=== PATIENT | female | born 1995 | race Caucasian/White ===

== ENCOUNTER 2018-02-24 11:18 | Outpatient (CLI) | payer OTHER ==
[2018-02-24 12:01] VITALS: BP 116/69
[2018-02-24 12:47] LABS: BILIRUBIN,URINE NEGATIVE (NEGATIVE); GLUCOSE, URINE (UA) NEGATIVE (NEGATIVE); KETONES,URINE (UA) 15 mg/dL (NEGATIVE); LEUKOCYTE ESTERASE, URINE TRACE (NEGATIVE); NITRITE,URINE NEGATIVE (NEGATIVE); OCCULT BLOOD,URINE LARGE (NEGATIVE); PROTEIN,URINE 100 mg/dL (NEGATIVE); UROBILINOGEN,URINE 0.2 (NORMAL) E.U./dL (NORMAL)
[2018-02-24 12:48] LABS: CLARITY,URINE HAZY (CLEAR)
[2018-02-24 13:07] LABS: BACTERIA,URINE Few /HPF (None Seen); RBC,URINE TNTC /HPF (0-5); SQUAMOUS EPITHELIAL CELL,UR RARE Squamous (<= Few)
== END 2018-02-24 12:50 | disposition home or self-care (01) ==
LOC: WFO 11:18 → FBP 11:44 → WFO 12:50
PROVIDERS: ATTEND Nurse Practitioner Obstetrics & Gynecology
DX: O47.03 False labor before 37 completed weeks of gestation, third trimester (principal); Z3A.34 34 weeks gestation of pregnancy
CPT/HCPCS: 81001; 81003; 87086; 99213

== ENCOUNTER 2018-03-01 14:46 | Outpatient (CLI) | payer OTHER | END 2018-03-01 14:47 | disposition home or self-care (01) | LOC: LAB.R 14:46 | PROVIDERS: ATTEND Registered Nurse | DX: Z36.85 Encounter for antenatal screening for Streptococcus B (principal) | CPT/HCPCS: 87081 ==

== ENCOUNTER 2018-03-07 15:23 | Outpatient (CLI) | payer OTHER ==
[2018-03-07 19:39] LABS: BILIRUBIN,URINE NEGATIVE (NEGATIVE); GLUCOSE, URINE (UA) NEGATIVE (NEGATIVE); KETONES,URINE (UA) NEGATIVE (NEGATIVE); LEUKOCYTE ESTERASE, URINE MODERATE (NEGATIVE); NITRITE,URINE NEGATIVE (NEGATIVE); OCCULT BLOOD,URINE TRACE-LYSE (NEGATIVE); PROTEIN,URINE NEGATIVE (NEGATIVE); UROBILINOGEN,URINE 0.2 (NORMAL) E.U./dL (NORMAL)
[2018-03-07 19:52] LABS: BACTERIA,URINE Few /HPF (None Seen); CLARITY,URINE CLEAR (CLEAR); RBC,URINE 0-5 /HPF (0-5); SQUAMOUS EPITHELIAL CELL,UR MANY Squamous (<= Few)
== END 2018-03-07 15:24 | disposition home or self-care (01) ==
LOC: LAB.R 15:23
PROVIDERS: ATTEND Nurse Practitioner Obstetrics & Gynecology
DX: R35.0 Frequency of micturition (principal)
CPT/HCPCS: 81001; 87086

== ENCOUNTER 2018-03-29 03:20 | Inpatient (IN) | payer OTHER ==
[2018-03-29] MEDS ORDERED: SODIUM CHLORIDE FLUSH 0.9% 10 ML SYRINGE IVP PRN (04:00)
[2018-03-29] MEDS ORDERED: fentaNYL 100 MCG/2 ML VIAL IVP PRN (04:00)
[2018-03-29] MEDS ORDERED: ONDANSETRON 4 MG/2 ML VIAL IVP PRN (04:00)
[2018-03-29] MEDS ORDERED: OXYTOCIN/SODIUM CHLORIDE 250 ML IV ONE ×2 (04:00→21:03)
[2018-03-29] MEDS ORDERED: ACETAMINOPHEN 325 MG TABLET PO SCH (04:00)
--- NOTE | 2018-03-29 04:09 | HISTORY & PHYSICAL EXAMINATION ---
Admit History - Instructions [place]: -Left hand click circles element as positive or present. -Right hand click slashes element as negative or not present. - Visit Reason Visit Reason: Membranes rupture (gross, copious leakage of CAF beginning @ 0230) - : 1 Parity: 0 Premature: 0 Ectopic: 0 : 0 Care: positive: [facility] (until 33 weeks), [facility] (transfer of care @ 33 weeks' gestation) Risk/History: positive: None Complications This : positive: Other (Rh negative, rubella NI ) Smoking Status: Never smoker - Mother's Labs Mother's Blood Type: positive: O Mother's RH: positive: Negative GBS: positive: Group B Step Negative Rubella Status: positive: Non-immune (vaccinate ) - Other Maternal History Other Maternal History: PMH: Unremarkable PsurgHx: Surgery on L 5th digit @ age 11 secondary to fracture; no complications GynHx: Denies hx of STI; LMP 06/19/17; no pap hx secondary to age OBhx: Primiparous FamHx: Maternal hx of obesity, diabetes, otherwise non-contributory SocHx: Lives w/ her mother & sister, denies DV, negligence, other abuse; partnered to Cyril KIDD, who is presently deployed, works p/t @ [employer] in [place], denies ETOH/drugs/tobacco, expecting male "OLIVA" Meds/Allgy - Home Medications Home Medications: Ambulatory Orders Medication Instructions Recorded Confirmed Phenazopyridine [Pyridium] 100 mg PO Q8H PRN #9 tablet 10/28/15 - Allergies Allergies/Adverse Reactions: Allergies Allergy/AdvReac Type Severity Reaction Status Date / Time latex Allergy Rash Verified 10/28/15 19:35 Review of Systems - Constitutional Constitutional: denies: Fatigue, Fever, Chills, Malaise - Cardiovascular Cariovascular: denies: Irregular heart rate, Palpitations, Chest pain, Edema - Respiratory Respiratory: denies: Cough, Sputum production, Wheezing - Gastrointestinal Gastrointestinal: reports: Reflux/heartburn. denies: Abdominal pain, Abdominal distention, Constipation, Diarrhea, Change in bowel habits, Nausea, Vomiting - Genitourinary Genitourinary: reports: Frequency. denies: Dysuria, Urgency - Musculoskeletal Musculoskeletal: reports: Back pain. denies: Muscle pain - Integumentary Integumentary: denies: Rash, Pruritis, Lesions - Neurological Neurological: denies: General weakness, Focal weakness, Headache, Dizziness, Numbness, Pre-existing deficit - Psychiatric Psychiatric: denies: Depression, Anxiety - Endocrine Endocrine: denies: Polyuria - Hematologic/Lymphatic Hematologic/Lymphatic: denies: Anemia - All Other Systems All Other Systems: reports: Other (+FM, +LOF, no VB, bloody show last week, occ painful contractions, nothing consistent) Physical - Abdominal Exam Vital Signs: Temp Pulse Resp BP Pulse Ox 36.6 C 79 20 137/86 H 99 03/29/18 03:29 03/29/18 03:29 03/29/18 03:29 03/29/18 03:29 03/29/18 03:29 Contraction Frequency (min/apart): 2-4 : 60-80 Contraction Intensity: positive: Mild Uterine Resting Tone: positive: Soft - Monitoring Heart Rate Baseline: 130 Strip Review: positive: Category I (+accels, no decels, mod diamante) - Presentation Presentation: positive: Vertex - Vaginal Exam Membranes: positive: Membranes ruptured Dilation (in cm): 2 Effacement (%): 90 Station: positive: 0 Cervical Position: positive: Midposition (Fierro's score = 8) - Speculum Exam Speculum Exam Performed: positive: No Findings: positive: Gross leak (observed copious leakage of CAF), Nitrazine - Other Notes Labor Progress Note/Additional Text: China Roberts is a 22 y/o @ 39w1d by first trimester US, consistent w/ LMP dating, whose has been largely uncomplicated to date. Her screening labs have been notable only for negative blood type (w/ negative antibody screening & routine administration of Rhogam 300mcg IM @ 27 weeks' gestation), and rubella NI status. She screened negative for GBS @ 36 weeks' gestation. She presents this evening w/ a complaint of LOF since 0230. She reports occasional painful contractions but is largely unaware of most of the contraction activity that she is having. She is accompanied by her mother & her sister & is FaceTiming w/ Cyril, who is presently deployed. She reports good FM. She is hoping for minimal intervention & is hoping to have an unmedicated delivery. PE: GEN: AAOX3, NAD WA gravid female HEENT: Grossly normocephalic, atraumatic RESP: Lungs b/l CTA t/o CARDIAC: RRR nls1s2, no murmur GI: Abd gravid, NT, palpable mild uterine contractions, lie longitudinal, presentation cephalic, position DOP, EFW 7.5-8# : No lesions, gross leakage of copious CAF, no bleeding OB: EFM: BL 130bpm, +accels, no decels, mod diamante; TOCO: UCs q2-4 min x60-80 seconds, palpably mild; SVE 2/90/0, midposition, soft, Fierro's Score = 8 MS: FROM t/o, no edema/erythema/deformity NEURO: No focal deficit SKIN: warm, well-perfused, c/d/i, w/o lesion PSYCH: pleasantly conversant w/ normal mood & affect Plan for Labor - Plan For Labor I expect patient to be DC'd or transferred within 96 hours.: Yes Plan for Labor: A: 22 y/o @ 39w1d w/ SROM for CAF @ 0230, for a total ruptured duration of 1.75 hours, afebrile GBS negative FHTs cat I Adequate pain control w/o analgesia/anesthesia O negative Rubella NI Early latent labor malposition: occiput posterior P: 1. Admit to FBP, IV insert, admission labs 2. Reviewed physiology of labor & implications of SROM; reviewed recommendation for IOL if she is not in labor & rationale; she is presently kim too frequently to receive augmentation, but PARQ held for buccal misoprostol & reviewed @ great length the risks/benefits of augmentation @ this time; if contractions are no longer consistently occurring at minimum q 4 minutes, administer 50mcg buccal misoprostol q 4 hours; reviewed use of Pitocin; once Fierro's >9 in this primiparous woman, if contractions are no longer consistently occuring at minimum q 4 minutes, begin Pitocin infusion per protocol & titrate to maintain adequate contraction pattern by tocometry 3. Reviewed optimal fetl positioning & maternal positioning/activity to encourage rotation & descent 4. Reviewed pain management options; pt desires unmedicated delivery, reviewed relief measures @ length 5. Reassess cervical status x4 hours, earlier PRN; minimize SVE to only those necessary for clinical decision-making secondary to ROM status 6. Plan cord blood evaluation & Rhogam as indicated; plan MMR administration 7. Reviewed plan of care w/ pt, her family, & RN @ bedside; all in agreement, without concerns.
[2018-03-29] MEDS: SODIUM CHLORIDE FLUSH 0.9% 10 ML SYRINGE IVP SCH ×3 (04:10→23:40)
[2018-03-29 04:37] LABS: BASOPHILS # (AUTO) 0.1 10^3/uL (0.0-0.1); BASOPHILS % (AUTO) 0.5 %; EOSINOPHILS # (AUTO) 0.1 10^3/uL (0.0-0.7); EOSINOPHILS % (AUTO) 1.1 %; HGB - HEMOGLOBIN 10.1 g/dL (12.0-16.0); LYMPHOCYTES % (AUTO) 16.8 %; MEAN CORPUSCULAR HEMOGLOBIN 26.5 pg (27.0-31.0); MEAN CORPUSCULAR HGB CONC 33.6 g/dL (32.0-36.0); MEAN CORPUSCULAR VOLUME 78.9 fL (81.0-99.0); MEAN PLATELET VOLUME 9.5 fL (7.9-10.8); MONOCYTES # (AUTO) 0.9 10^3/uL (0.0-1.0); MONOCYTES % (AUTO) 7.7 %; NEUTROPHILS # (AUTO) 8.7 10^3/uL (1.5-6.6); NEUTROPHILS % (AUTO) 73.9 %; PLT - PLATELET COUNT 137 10^3/uL (130-450); RED BLOOD COUNT 3.82 10^6/uL (4.20-5.40); RED CELL DISTRIBUTION WIDTH 12.8 % (12.0-15.0); WHITE BLOOD COUNT 11.8 x10^3/uL (4.8-10.8)
[2018-03-29] MEDS: miSOPROStol 100 MCG TABLET BC SCH ×2 (07:41→08:47)
--- NOTE | 2018-03-29 08:33 | PROVIDER PROGRESS NOTE ---
Labor Progress Note - Uterine Monitoring Uterine Monitoring Mode: positive: External toco Contraction Frequency (min/apart): 3-5 Contraction Intensity: positive: Moderate Uterine Resting Tone: positive: Soft - Monitoring Monitor Mode: positive: External ultrasound Heart Rate Baseline: 130 Heart Rate Variability: positive: Moderate (6-25 bmp) Accelerations: positive: Present, 15x15 Decelerations: positive: None - Vaginal Exam Dilation (in cm): 2 Effacement (%): 90 Station: -1, 0 Cervical Position: Midposition - Labor Progress Note Labor Progress Note/Additional Text: S: Laying in bed with mom and sister supportive at the bedside. Coping well with contractions. Reports +FM. O: SVE /0, vertex - unchanged from last exam. Contractions palpate moderate every 3-5 minutes. FHR baseline 130s, moderate variability, +accels, no decels. A: 22yo @ 39.1wks gestation by L=10wk U/S Early labor SROM x 6 hours - afebrile P: Continue expectant management Encouraged ambulation and frequent position changes Initiate pitocin per protocol if contractions decreased in frequency Reevaluate in 4 hours or sooner PRN Pt verbalized understanding and agrees to above plan. Denies further questions or concerns at this time.
[2018-03-29] MEDS: LACTATED RINGERS 1,000 ML IV SCH ×3 (08:46→17:29)
[2018-03-29] MEDS: OXYTOCIN/SODIUM CHLORIDE 500 ML IV SCH (12:09)
--- NOTE | 2018-03-29 14:09 | PROVIDER PROGRESS NOTE ---
Labor Progress Note - Uterine Monitoring Uterine Monitoring Mode: positive: External toco Contraction Frequency (min/apart): 2-5 Contraction Intensity: positive: Moderate Uterine Resting Tone: positive: Soft - Monitoring Monitor Mode: positive: External ultrasound Heart Rate Baseline: 150 Heart Rate Variability: positive: Moderate (6-25 bmp) Accelerations: positive: Present, 15x15 Decelerations: positive: None - Labor Progress Note Labor Progress Note/Additional Text: S: Sitting up at the edge of the bed with mom and sister supportive at the bedside. Reports she is feel grumpy and annoyed that this is not happening more quickly. O: SVE deferred. Pitocin at 2mU/mL. Contractions palpate moderate every 2-5 minutes. FHR baseline 150s, moderate variability, + accels, no decels. A: 22yo @ 39.1wks gestation Augmentation of labor with Pitocin SROM x 11.5hrs-afebrile P: Continue active management and titration of pitocin per protocol. Plan repeat SVE in 4 hours unless otherwise clinically indicated. Epidural per maternal request. Anticipate spontaneous vaginal delivery.
--- NOTE | 2018-03-29 17:23 | PROVIDER PROGRESS NOTE ---
Objective - Vital Signs/Intake & Output Intake & Output: Intake & Output 03/26/18 03/27/18 03/28/18 03/29/18 23:59 23:59 23:59 23:59 Output Total 300 Balance -300 - Lab Results Fish Bones: 03/29/18 04:10 Other Labs: Lab Results x24hrs 03/29/18 Range/Units 04:10 WBC 11.8 H (4.8-10.8) x10^3/uL RBC 3.82 L (4.20-5.40) 10^6/uL Hgb 10.1 L (12.0-16.0) g/dL Hct 30.2 L (37.0-47.0) % MCV 78.9 L (81.0-99.0) fL MCH 26.5 L (27.0-31.0) pg MCHC 33.6 (32.0-36.0) g/dL RDW 12.8 (12.0-15.0) % Plt Count 137 (130-450) 10^3/uL MPV 9.5 (7.9-10.8) fL Neut # 8.7 H (1.5-6.6) 10^3/uL Lymph # 2.0 (1.5-3.5) 10^3/uL Ceiba # 0.9 (0.0-1.0) 10^3/uL Eos # 0.1 (0.0-0.7) 10^3/uL Baso # 0.1 (0.0-0.1) 10^3/uL Absolute Nucleated RBC 0.00 x10^3/uL Nucleated RBC % 0.0 /100WBC
--- NOTE | 2018-03-29 17:24 | PROVIDER PROGRESS NOTE ---
Labor Progress Note - Uterine Monitoring Uterine Monitoring Mode: positive: External toco Contraction Frequency (min/apart): 2-3 Contraction Intensity: positive: Strong Uterine Resting Tone: positive: Soft - Monitoring Monitor Mode: positive: External ultrasound Heart Rate Baseline: 130 Heart Rate Variability: positive: Moderate (6-25 bmp) Accelerations: positive: Present, 15x15 Decelerations: positive: None Strip Review: positive: Category I - Vaginal Exam Dilation (in cm): 6 Effacement (%): 100 Station: 0 Cervical Position: Midposition
--- NOTE | 2018-03-29 17:28 | PROVIDER PROGRESS NOTE ---
Labor Progress Note - Labor Progress Note Labor Progress Note/Additional Text: S: [facility] No longer coping well with contractions. Encouraged patient to get out of tub for SVE. Mom sitting at tub-side. Pt expresses desire for epidural at this time. She states she is fatigued and having difficulty coping at this time. Mom at bedside attempting to talk patient out of getting an epidural. Patient teary and again states her desire for an epidural. O: SVE 6/100/0, soft, stretchy, vertex. FHR baseline 130s, moderate variability , + accels, no decels. Contractions palpate strong every 2-3 minutes with soft resting tone. Afebrile A: 22yo @ 39.1wks gestation Active labor Augmentation with pitocin - max 4mU/mL SROM x 14 hours-afebrile P: Continue active management Continuous monitoring Anesthesia called to bedside for placement of epidural per maternal request. Anticipate spontaneous vaginal delivery.
[2018-03-29] MEDS ORDERED: fent/BUPIV 2 MCG/0.125% 250 ML EP ONE (17:42)
[2018-03-29] MEDS ORDERED: LIDOCAINE 1% 50 ML MDV ONE (20:49)
--- NOTE | 2018-03-29 21:15 | DELIVERY NOTE ---
Delivery Note - Labor Labor: positive: Augmented by oxytocin - Delivery Method Delivery Method: positive: Spontaneous vaginal delivery - Presentation Presentation: positive: Vertex, BERNARD - left occiput anterior - Nuchal Cord Nuchal Cord: positive: None - Amniotic Fluid Description Amniotic Fluid Description: positive: Clear - Episiotomy Type Episiotomy Type: positive: None - Laceration Laceration: positive: Sulcus - Suture Suture Type: positive: Vicryl Suture Size: positive: 3-0 - Delivery Outcome Delivery Outcome: positive: Livebirth - : positive: Placed in direct skin contact with mother, Suctioned, Bulb syringe, Stimulated, Warmed, [place] used sex: positive: Male - Cord Cord: positive: 3 vessels - Placenta Placenta: positive: Intact, Spontaneous - Estimated Blood Loss Estimated Blood Loss (in cc): 400 - Post Delivery Events Post Delivery Events: positive: No post delivery events - Delivery Comments (Free Text/Narrative) Delivery Comments (Free Text/Narrative): Labor: This 22 yo @ 39.1wks gestation presented at approximately 0245 on with SROM @ 0230 and was noted to be clear fluid. Cervix was 2/90/-1 and vertex. FHR pattern demonstrated a baseline of 130 in a Category I pattern throughout. She was augmented with pitocin for a maximum rate of 6mU/mL. Normal labor course. Epidural placed upon maternal request. : Pt progressed to c/c/with anterior lip and strong urge to push at 1922. Anterior lip was easily reduced with maternal pushing effort. Normal SVB of a viable male . No nuchal. 's were 8/9 at 1 and 5 min respectively @ 4 on 03/29/2018. The was placed on maternal abdomen, stimulated, dried, and placed skin to skin. The umbilical cord was allowed to stop pulsating at which time it was doubly clamped and cut by mother of the patient. Cord blood was obtained. Placenta delivered spontaneously and intact at 2048. 3VC. Pitocin was administered via IV for hemostasis. EBL 400mL. Fourth Stage: Uterine fundus firm and there is no excessive bleeding. The perineum, vagina, and cervix were inspected and found to be intact with exception of 1cm right sulcus laceration which was repaired using a 3-[address] 1 interrupted suture in standard fashion under sterile conditions. Vaginal examination following the repair was done. Tissues well approximated and hemostatic. Patient intends to breastfeed and is currently skin to skin. Both mother and baby were left in stable condition.
[2018-03-29] MEDS ORDERED: LACTATED RINGERS 1,000 ML IV SCH (22:00)
[2018-03-29] MEDS: ACETAMINOPHEN 325 MG TABLET PO PRN (22:08)
[2018-03-29] MEDS ORDERED: WITCH HAZEL/GLYCERIN 1 EACH MED..PAD TOP PRN (22:09)
[2018-03-29] MEDS ORDERED: HYDROCORTISONE/PRAMOXINE 10 GM PR PRN (22:09)
[2018-03-29] MEDS: IBUPROFEN 800 MG TABLET PO SCH (22:09)
[2018-03-30] MEDS: IBUPROFEN 800 MG TABLET PO SCH ×3 (05:21→21:16)
--- NOTE | 2018-03-30 07:01 | PROVIDER PROGRESS NOTE ---
Subjective - Subjective Subjective: S: Bonding well with baby . without difficulty and baby is at the breast upon my arrival. Mom is supportive in the rocking chair. Bleeding is red without clotting. Pain well controlled with ibuprofen. O: Admitting Hgb 10.1. BP 116/63, T36.7, RR16, HR 79. Heart RRR w/o M/G/R, lungs CTAB, abdomen soft and nontender with fundus firm at U-2. Bilateral LE's no edema. Perineum intact. Light lochia rubra A: 22yo -->P1 PPD#1, s/p TSVD of viable male named Jeyson whom weight 8lbs 12oz P: Continue routine pp self care and meds. Pt denies further questions or concerns at this time. Reevaluate for discharge home tomorrow. Objective - Vital Signs/Intake & Output Vital Signs: Vital Signs x48h Temp Pulse Resp BP Pulse Ox 03/30/18 05:22 36.7 C 79 16 116/63 99 03/30/18 00:59 36.8 C 115 H 16 125/68 98 03/29/18 23:47 91 16 116/67 99 03/29/18 23:20 36.9 C Intake & Output: Intake & Output 03/27/18 03/28/18 03/29/18 03/30/18 23:59 23:59 23:59 23:59 Intake Total 1000 Output Total 1500 400 Balance -500 -400 - Lab Results Fish Bones: 03/29/18 04:10
[2018-03-30 07:06] LABS: MEAN CORPUSCULAR HEMOGLOBIN 26.2 pg (27.0-31.0); MEAN CORPUSCULAR HGB CONC 32.9 g/dL (32.0-36.0); MEAN CORPUSCULAR VOLUME 79.7 fL (81.0-99.0); RED BLOOD COUNT 3.43 10^6/uL (4.20-5.40); RED CELL DISTRIBUTION WIDTH 12.8 % (12.0-15.0); WHITE BLOOD COUNT 14.5 x10^3/uL (4.8-10.8)
[2018-03-30] MEDS: miSOPROStol 100 MCG TABLET BC SCH (07:30)
[2018-03-30] MEDS: OXYTOCIN/SODIUM CHLORIDE 500 ML IV SCH (07:30)
[2018-03-30] MEDS: DOCUSATE SODIUM 100 MG CAPSULE PO SCH ×2 (08:58→21:12)
[2018-03-30] MEDS: ACETAMINOPHEN 325 MG TABLET PO PRN (21:18)
[2018-03-31] MEDS: ACETAMINOPHEN 325 MG TABLET PO PRN ×2 (04:12→14:32)
[2018-03-31] MEDS: IBUPROFEN 800 MG TABLET PO SCH ×3 (04:12→16:26)
[2018-03-31] MEDS: DOCUSATE SODIUM 100 MG CAPSULE PO SCH (08:18)
--- NOTE | 2018-03-31 10:06 | Discharge Plan ---
Discharge Plan Disposition: 01 Home, Self Care Condition: Good Diet: Regular Activity Restrictions: No Restrictions Shower Restrictions: No Driving Restrictions: No Weight Bearing: Full Weight No Smoking: If you smoke, Please STOP! Call for help. Follow-up with: Ester Chang CNM, ARNP [Provider Admit Priv/Credential] -
--- NOTE | 2018-03-31 10:25 | PROVIDER PROGRESS NOTE ---
Subjective - Subjective Subjective: Final Progress Note S: Bonding well with baby. without difficulty. Pain well controlled. Bleeding decreased and light. O: HEart RRR w/o M/G/R, lungs CTAB, Abdomen soft and nontender with fundus firm at U-2. Perineum intact. Bilateral LE's no edema. A: 22yo -->P1 PPD#2, s/p TSVD of viable male infant P: Discharge to boarder mom status as baby will stay under bililights. Reviewed self care and warning signs. Planning condoms vs POPs for contraception. She intends to follow up with myself at [facility] in 1 week for visit and then in 3 weeks for visit. She verbalized understanding and agrees to above plan. Denies further questions or concerns at this time. Objective - Vital Signs/Intake & Output Vital Signs: Vital Signs x48h Temp Pulse Resp BP BP Pulse Ox 03/31/18 08:25 36.8 C 75 16 125/76 99 03/31/18 04:08 36.7 C 74 16 114/68 99 Intake & Output: Intake & Output 03/28/18 03/29/18 03/30/18 03/31/18 23:59 23:59 23:59 23:59 Intake Total 1000 Output Total 1500 400 Balance -500 -400 - Lab Results Fish Bones: 03/30/18 07:00
[2018-03-31] MEDS ORDERED: MEASLES,MUMPS & RUBELLA VACC 0.5 ML VIAL SUBQ ONE (11:45)
[2018-03-31 15:08] VITALS: BP 139/72
--- NOTE | 2018-03-31 16:42 | Labor Flowsheet ---
Labor Flowsheet Datetime Report Generated by CPN: 03/31/2018 16:42 Datetime: 03/31/2018 15:04 VITAL SIGNS NBP Sys/Lety/Mean (mmHg): 139 : 72 : 87 Pulse: 90 SpO2 (%): 99 LaborFlag: Labor Datetime: 03/29/2018 20:44 UTERINE ACTIVITY Monitor Mode: External Frequency (min): 1.5-2.5 Quality: Strong Duration (sec): 40-80 Pattern: Normal: <= 5 Contractions in 10 Minutes Resting Tone (Palpate): Relaxed ASSESSMENT A Monitor Mode: External US FHR Baseline Rate : 120 Variability: Moderate 6-25 bpm Accelerations: 15X15 Decelerations: Variable Category: Category II Oxygen Method: Room Air Datetime: 03/29/2018 20:30 Pitocin Checklist: At Least 1 Acceleration of 15 bpm x 15 Seconds in 30 Minutes or Adequate Variabi lity; No More than 5 Uterine Contractions in 10 Minutes for any 20 Minute Interval; Uterus Palpates S oft between Contractions Datetime: 03/29/2018 20:15 MEDICATIONS Pitocin (milliunits): Increased to @ 6 Datetime: 03/29/2018 20:00 Comments: decel x1 Datetime: 03/29/2018 19:54 ANESTHESIA Anesthesia Plans: Epidural Anesthesia Comments: epidural off per Bernardo CNM Datetime: 03/29/2018 19:49 PAIN Pain Scale: 0 Pain Relief Measures: Epidural Given Pain Coping: Breathing Through Contractions MATERNAL ASSESSMENT Level of Consciousness: Fully Conscious Headache: Denies Breath Sounds, Left: Clear and Equal Breath Sounds, Right: Clear and Equal Nausea/Vomiting: Denies RUQ Epigastric Pain: Denies Maternal Comments: can feel pressure but no pain Comfort Measures: Breathing/Relaxation Anesthesia Level Check: T5 Datetime: 03/29/2018 19:44 Temperature (C): 37.2 Datetime: 03/29/2018 19:37 VAGINAL EXAM Dilatation (cm): 10.0 Effacement (%): 100 Station: 2 Exam by: Bernardo SIDHU Datetime: 03/29/2018 19:35 Vaginal Bleeding: Normal Show Vaginal Exam Comments: "Anterior lip" Datetime: 03/29/2018 19:22 STAGE 2 Pushing: Coached on Pushing; No Urge to Push Pushing Position: Pushing with Contractions; Pushing Lithotomy Pushing Progress: Descent with Pushing Datetime: 03/29/2018 19:19 I/O Interventions: Straight Cath (ml) @ 350 Patient Care Comments: Straight cath by Nadeem Chang CNM Datetime: 03/29/2018 19:15 Stage of : Labor Actions for Decelerations: Provider Notified Datetime: 03/29/2018 19:12 COMMUNICATION Communication: Provider at Bedside Communication Comments: Bernardo @ BS Datetime: 03/29/2018 19:11 Patient Position/Activity: Left Tilt Datetime: 03/29/2018 18:15 FHR Baseline Changes: No Baseline Change Datetime: 03/29/2018 17:54 Epidural Procedure: Loading Dose Datetime: 03/29/2018 17:34 Epidural Positioning: Sitting Datetime: 03/29/2018 17:07 Monitor Interventions for UA: [place] Adjusted Monitor Interventions for FHR: Ultrasound Adjusted Datetime: 03/29/2018 16:45 Respirations: 18 Temperature Route: Oral Datetime: 03/29/2018 15:12 Vital Sign Comments: Pt has been in the jacuzzi tub approx 1.5 hrs. Pain Assessment Comments: Pt states ctx are getting more uncomfortable. Offered to call VENKAT Del Cid for labor support. Pt declined at this time. Datetime: 03/29/2018 05:36 Pain Presence: Intermittent Pain Type: Contraction Pain Location: Abdomen Datetime: 03/29/2018 04:10 PATIENT CARE IV/Blood Work: IV Started
--- NOTE | 2018-04-04 04:50 | DISCHARGE SUMMARY ---
Physician: KIKI Donato DATE OF ADMISSION: 03/29/2018 DATE OF DISCHARGE: 03/31/2018 DIAGNOSES ON ADMISSION 1. A 22-year-old G1, P0 at 39 and 1 weeks' gestation. 2. Premature rupture of membranes. DIAGNOSES ON DISCHARGE 1. A 22-year-old G1, P1-0-0-1, status post spontaneous vaginal delivery on 03/29/2018. 2. Normal recovery. 3. Status post MMR on 03/31/2018. BRIEF HISTORY: She is a patient at [facility] who presented on 03/29/2018 with complaints of premature rupture of membranes at 0230. She was augmented with Pitocin for a max rate of 6 milliunits per mL. Epidural placed per maternal request. She spontaneously delivered a viable male at 2043 on 03/29/2018. Apgars were 8 and 9 at one and five minutes, respectively. EBL 400 mL. The perineum, vagina, and cervix were inspected and found to be intact with the exception of a 1 cm right sulcus laceration, which was repaired using a 3-0 Vicryl on a CT1 needle to place 1 interrupted suture in a standard fashion under sterile conditions. She has been doing well in her course. She is ambulating and tolerating a regular diet. She is urinating without difficulty, and her lochia is normal. Her pain is well controlled with oral medications. She received MMR on 03/31/2018. She is Rh negative, as well as her baby. She did not receive RhoGAM during her course. She will be discharged home today on day #2. She intends to follow up with myself at [facility] in 1 week for visit and then in 3 weeks for routine visit. She has been given precautions to call if she has any worsening fevers, chills, abdominal pain, increased bleeding, or foul-smelling vaginal lochia. TD: 04/03/2018 14:57
== END 2018-03-31 15:28 | disposition home or self-care (01) | DRG 775 ==
LOC: WFO 03:20 → FBP 03:22 → WFO 03:59 → FBP 04:00
PROVIDERS: ADMIT Registered Nurse; ATTEND Nurse Practitioner Obstetrics & Gynecology
PROC: 10E0XZZ Delivery of Products of Conception, External Approach (ICD-10-PCS; principal; 2018-03-29)
PROC: 0UQGXZZ Repair Vagina, External Approach (ICD-10-PCS; 2018-03-29)
DX: O42.02 Full-term premature rupture of membranes, onset of labor within 24 hours of rupture (principal); O71.4 Obstetric high vaginal laceration alone; O64.0XX0 Obstructed labor due to incomplete rotation of fetal head, not applicable or unspecified; O75.81 Maternal exhaustion complicating labor and delivery; O26.893 Other specified pregnancy related conditions, third trimester; Z3A.39 39 weeks gestation of pregnancy; Z37.0 Single live birth; Z23 Encounter for immunization; Z67.41 Type O blood, Rh negative
CPT/HCPCS: 85025; 85027; 99213

== ENCOUNTER 2018-04-04 05:38 | Inpatient (IN) | payer OTHER ==
--- NOTE | 2018-04-04 05:41 | ED Physician Documentation ---
PD HPI SEIZURE - Stated complaint Stated Complaint: SZ - History obtained from History obtained from: Patient - History of Present Illness Timing - onset: Today Witnessed: Witnessed Contributing factors: Sleep deprivation Similar symptoms before: Has not had sx before Recently seen: Not recently seen - Additional information Additional information: Patient is a 22 year old female who recently delivered a baby who was witnessed having shaking episodes. According to patient and hospitalist patient was on the ob floor and had multiple episode of shaking various body parts. Patient remains awake and talking during the entire episode. the hospitalist evaluated the patient on the floor and and agreed to observation but patient had to come through the er. Upon my initial evaluation patient has shaking her left arm, but would stop when pressure was applied. Patient was awake, alert and oriented the entire time. Review of Systems Ten Systems: 10 systems reviewed and negative PD PAST MEDICAL HISTORY - Past Surgical History Past Surgical History: Yes - Present Medications Home Medications: Ambulatory Orders Medication Instructions Recorded Confirmed Phenazopyridine [Pyridium] 100 mg PO Q8H PRN #9 tablet 10/28/15 - Allergies Allergies/Adverse Reactions: Allergies Allergy/AdvReac Type Severity Reaction Status Date / Time No Known Drug Allergies Allergy Verified 04/04/18 05:44 - Social History Does the pt smoke?: No Smoking Status: Never smoker Does the pt drink ETOH?: No Does the pt have substance abuse?: No - Immunizations Immunizations are current?: No PD ED PE NORMAL - Vitals Vital signs reviewed: Yes - General General: Alert and oriented X 3, No acute distress, Well developed/nourished - HEENT HEENT: Atraumatic, Moist mucous membranes - Neck Neck: Supple, no meningeal sign - Cardiac Cardiac: RRR - Respiratory Respiratory: No respiratory distress - Abdomen Abdomen: Non distended - Extremities Extremities: No deformity, No tenderness to palpate - Neuro Neuro: Alert and oriented X 3, No motor deficit, Normal speech Eye Opening: Spontaneous Motor: Obeys Commands Verbal: Oriented GCS Score: 15 PD ED PE EXPANDED - Psych Psych: Anxious Results - Vitals Vitals: Vital Signs - 24 hr 04/04/18 04/04/18 05:40 06:17 Temperature 37 C Heart Rate 102 H 103 H Respiratory 18 16 Rate Blood Pressure 157/100 H 146/87 H O2 Saturation 100 100 Oxygen O2 Source Room air - Labs Labs: Laboratory Tests 04/04/18 04/04/18 05:50 05:50 WBC 11.0 H RBC 4.35 Hgb 11.5 L Hct 35.1 L MCV 80.6 L MCH 26.5 L MCHC 32.9 RDW 13.2 Plt Count 269 MPV 8.0 Neut # 7.4 H Lymph # 2.2 Cecil # 0.7 Eos # 0.6 Baso # 0.1 Absolute Nucleated RBC 0.00 Nucleated RBC % 0.0 Sodium 141 Potassium 3.4 L Chloride 108 Carbon Dioxide 26 Anion Gap 7.0 BUN 9 Creatinine 0.6 Estimated GFR (MDRD) 127 Glucose 85 Calcium 8.8 Phosphorus 2.3 L Magnesium 2.0 Total Bilirubin 0.5 AST 25 ALT 22 Alkaline Phosphatase 82 Total Protein 7.0 Albumin 3.1 L Globulin 3.9 Albumin/Globulin Ratio 0.8 L Lipase 24 PD MEDICAL DECISION MAKING - ED course Complexity details: reviewed old records, reviewed results, re-evaluated patient , considered differential, d/w patient, d/w science consultant ED course: Patient was seen and examined at bedside. Hospitalist was at bedside. Patient 's symptoms seemed more psychological as opposed to neurological. labs were drawn. Patient was found to have slightly decreased electrolytes which were replaced. Orders were written and patient was placed in observation. Departure - Departure Disposition: ED Place in Observation Clinical Impression: Seizure Condition: Good
--- NOTE | 2018-04-04 05:54 | HISTORY & PHYSICAL EXAMINATION ---
Chief Complaint - Chief Complaint Chief Complaint: involuntary movements starting 6 days after vaginal delivery of first child History of Present Illness - Admitted From Admitted From:: ER/OB unit - History Obtained From Records Reviewed: [facility] History obtained from: Patient, her friend Exam Limitations: None - History of Present Illness HPI Comment/Other: she is a 22 year old white female, who had a spontaneous vaginal delivery at 33 weeks on 03/29/18 after spontaneous rupture of membranes. There were no complications, no pre-eclampsia, no gestational diabetes. She denies any recreational substance abuse. She had an epidural with labor. She has been here in the hospital as a boarder since her son is under bili lights. She has been pumping her breast milk and the baby has been bottle fed with that to avoid losing time under the lights. She has been up in room and walking in room and halls since delivery. Early this morning she did breast feed him for the first time. She drifted off to sleep for a few moments then woke up with involuntary symmetrical arm movements, and her jaw moving and teeth "chattering ". She did not have stool or urine incontinence and she has been awake, aware the entire time. There is no chest pain, shortness of breath when I walk in to assess. BP is stable and no fever. She denies abd pain. Denies leg edema, painful legs. No hypoxia. This lasted about 10 minutes, then stopped for 20 seconds, then resumed with legs and arms. Again, able to speak, answer my questions, looking at me directly. Ongoing now for 40 minutes. Transferred to ER since she is not a registered patient. Seen by Dr. Pabon. Stat labs done. She is now crying. Feeling as if she is short of breath, "I feel like I'm going to " and very scared. Again, no chest pain. Vitals are normal except for BP 150/100. Emotional support provided. Mom then came and patient anxiety lessened with resolution of crying. She is asking for breast pumping since she has missed two and her breasts are full and hurt. History - Past Medical History Cardiovascular: reports: None Respiratory: reports: None Neuro: reports: None Endocrine/Autoimmune: reports: None GI: reports: None MEDICAL TRANSCRIBER: reports: None : reports: None HEENT: reports: None Psych: reports: None Musculoskeletal: reports: Other (fracture 5th finger age of [age]. repaired. ) Derm: reports: None MRSA Hx?: No - Past Surgical History Other past surgical history: No past surgical history. - Family & Social History Family History Comment/Other: Mom is healthy. dad has DM. 1 sister is healthy Living arrangement: At home Living Situation: Alone (spouse is Tab and deployed right now.) Social History Notes: She lives with mom and sister. father of her son is Tab and deployed. Denies recreational substance use or abuse. Nonsmoker. Rarely drinks alcohol. Before delivery was working at [employer] in [employer]. - Substance History Use: Uses substance without health or social issues: NONE Abuse: Recurrent use of substance despite neg consequences: NONE Dependence: Experiences withdrawal or developed tolerances: NONE - POLST Patient has POLST: No POLST Status: Full Code Meds/Allgy - Home Medications Home Medications: Ambulatory Orders Medication Instructions Recorded Confirmed Phenazopyridine [Pyridium] 100 mg PO Q8H PRN #9 tablet 10/28/15 - Allergies Allergies/Adverse Reactions: Allergies Allergy/AdvReac Type Severity Reaction Status Date / Time No Known Drug Allergies Allergy Verified 04/04/18 05:44 Review of Systems - Constitutional Constitutional: denies: Fatigue, Fever, Chills, Malaise - Eyes Eyes: denies: Pain, Irritation, Amaurosis, Blurred vision, Dipolpia - Ears, Nose & Throat Ears, Nose & Throat: denies: Ear pain, Tinnitus, Vertigo - Cardiovascular Cariovascular: denies: Irregular heart rate, Palpitations, Chest pain, Edema, Syncope, Exertional dyspnea - Respiratory Respiratory: denies: Cough, Sputum production, Wheezing, Orthopnea, SOB at rest , SOB with exertion - Gastrointestinal Gastrointestinal: denies: Abdominal pain, Abdominal distention, Constipation, Diarrhea, Black stools, Bloody stools, Vomiting - Genitourinary Genitourinary: denies: Dysuria, Frequency, Urgency, Hematuria - Musculoskeletal Musculoskeletal: denies: Muscle pain, Back pain, Muscle aches, Stiffness - Integumentary Integumentary: denies: Rash, Pruritis, Lesions, Dryness - Neurological Neurological: denies: General weakness, Focal weakness, Headache, Numbness, Memory problems, Pre-existing deficit - Psychiatric Psychiatric: denies: Depression, Anxiety, Suicidal - Endocrine Endocrine: denies: Polyuria, Polydypsia, Polyphagia Exam - Vital Signs Reviewed Vital Signs: Yes Vital Signs: Vital Signs x48h Temp Pulse Resp BP Pulse Ox 18 05:40 37 C 102 H 18 157/100 H 100 - Physical Exam General Appearance: positive: No acute distress, Alert, Moderate distress (from her fear and emotions, very scary for her. Friend of 10 years at the bedside) Eyes Bilateral: positive: PERRL, EOMI ENT: positive: Pharynx nml, Dry mucous membranes Neck: positive: No JVD. negative: Stiff neck, Carotid bruit Respiratory: positive: Chest non-tender, Other (mildly tachypneic). negative: Wheezes, Rales, Rhonchi Cardiovascular: positive: Regular rate & rhythm, Tachycardia. negative: Systolic murmur, Gallop/S4, Friction rub Peripheral Pulses: positive: 1+ Abdomen: positive: Non-tender, No organomegaly, Nml bowel sounds, No distention Back: positive: Nml inspection. negative: CVA tenderness (R), CVA tenderness (L ) Skin: positive: Warm, Dry Extremities: positive: Nml appearance, No pedal edema. negative: Calf tenderness, Joint swelling, Dante's sign/cords Neurologic/Psychiatric: positive: Oriented x3, CN's nml (2-12), Sensation nml ( she feels light touch and needle touch normally of hands and feet.), Mood/ affect nml (very anxious and tearful), Weakness (while she cannot lift her arm or legs voluntarily she will do hand strength and plantar/dorsiflexion strength testing and it is symetrical 2/5. No rigidity, no spasticity. Muscle movement is symetrical, involuntary and fluid with athetosis in arms and legs. The movement stops when she has to answer my questions or when I apply pinching pressure to radial artery over wrist or to web space between thumb and index finger. Teeth are chattering. Speech is normal to low and cracked. Relfexes brisk and hyperactive at brachioradialis and knees.) Reflexes: Bicep (R): 3+, Bicep (L): 3+, Knee (R): 3+, Knee (L): 3+ Babinski Reflex: Right: Down, Left: Down Conclusion/Plan - Problem List (1) Involuntary movements on examination Conclusion/Plan: She was alarmed and labeled them seizures. I have reassured she and her mom, that they are not. This may be conversion reaction with anxiety. Plan: -place in observation -emotional support -ativan 0.5 mg IV q2 h prn. She declines at this time since she doesn't want to "pump and dump" -monitor neuro exams q4 hours. -I have considered but will not do MRI since this appears to be a form of anxiety. (2) Electrolyte abnormality Conclusion/Plan: wiith hypophosphatemia and hypokalemia Plan: supplement in ER po with ER doc. Recheck in 4 hours. (3) Transient elevated blood pressure Conclusion/Plan: She was not preeclamptic in antepartum or any trimester or immediate . Plan: Mag sulfate 1 gram IV monitor BP - Lab Results Lab results reviewed: Yes Juan R Bones: 04/04/18 05:50 04/04/18 05:50 Core Measures - Anticipated LOS I expect patient to be DC'd or transferred within 96 hours.: Yes - DVT/VTE - Prophylaxis VTE/DVT Device ordered at admit?: Yes Not Ordered - Low Risk: Very low risk
[2018-04-04 06:02] LABS: BASOPHILS # (AUTO) 0.1 10^3/uL (0.0-0.1); BASOPHILS % (AUTO) 0.6 %; EOSINOPHILS # (AUTO) 0.6 10^3/uL (0.0-0.7); EOSINOPHILS % (AUTO) 5.5 %; HGB - HEMOGLOBIN 11.5 g/dL (12.0-16.0); LYMPHOCYTES # (AUTO) 2.2 10^3/uL (1.5-3.5); LYMPHOCYTES % (AUTO) 19.6 %; MEAN CORPUSCULAR HEMOGLOBIN 26.5 pg (27.0-31.0); MEAN CORPUSCULAR HGB CONC 32.9 g/dL (32.0-36.0); MEAN CORPUSCULAR VOLUME 80.6 fL (81.0-99.0); MONOCYTES # (AUTO) 0.7 10^3/uL (0.0-1.0); MONOCYTES % (AUTO) 6.6 %; NEUTROPHILS # (AUTO) 7.4 10^3/uL (1.5-6.6); NEUTROPHILS % (AUTO) 67.7 %; PLT - PLATELET COUNT 269 10^3/uL (130-450); RED BLOOD COUNT 4.35 10^6/uL (4.20-5.40); RED CELL DISTRIBUTION WIDTH 13.2 % (12.0-15.0)
[2018-04-04 06:13] LABS: ALBUMIN 3.1 g/dL (3.2-5.5); ALBUMIN/GLOBULIN RATIO 0.8 (1.0-2.2); BILIRUBIN,TOTAL 0.5 mg/dL (0.2-1.0); CALCIUM 8.8 mg/dL (8.5-10.3); CREATININE 0.6 mg/dL (0.4-1.0); PHOSPHORUS 2.3 mg/dL (2.5-4.6)
[2018-04-04] MEDS ORDERED: ONDANSETRON ODT 4 MG TABLET TL PRN (06:20)
[2018-04-04] MEDS ORDERED: oxyCODONE 5 MG TABLET PO PRN (06:20)
[2018-04-04 06:33] LABS: BILIRUBIN,URINE NEGATIVE (NEGATIVE); GLUCOSE, URINE (UA) NEGATIVE (NEGATIVE); KETONES,URINE (UA) NEGATIVE (NEGATIVE); LEUKOCYTE ESTERASE, URINE SMALL (NEGATIVE); NITRITE,URINE NEGATIVE (NEGATIVE); OCCULT BLOOD,URINE LARGE (NEGATIVE); PROTEIN,URINE NEGATIVE (NEGATIVE); UROBILINOGEN,URINE 0.2 (NORMAL) E.U./dL (NORMAL)
[2018-04-04 06:35] LABS: CLARITY,URINE CLEAR (CLEAR)
[2018-04-04] MEDS ORDERED: MAGNESIUM SULFATE 1 GM/2 ML VIAL IVP STA (06:37)
[2018-04-04 06:43] LABS: BACTERIA,URINE Few /HPF (None Seen); RBC,URINE 0-5 /HPF (0-5); SQUAMOUS EPITHELIAL CELL,UR FEW Squamous (<= Few)
[2018-04-04] MEDS ORDERED: DEXTROSE 5%-0.9% NACL 1,000 ML IV SCH (07:00)
[2018-04-04] MEDS ORDERED: NEUTRA-PHOS 250 MG TABLET PO SCH (07:00)
[2018-04-04] MEDS ORDERED: POLYETHYLENE GLYCOL 3350 17 GM PACKET PO SCH (09:00)
[2018-04-04] MEDS: MAGNESIUM SULFATE 2 GRAM 4 GM/100 ML BAG IV ONE ×2 (09:17→09:18)
[2018-04-04] MEDS ORDERED: LACTATED RINGERS 1,000 ML IV ONE (09:23)
[2018-04-04] MEDS ORDERED: MAGNESIUM SULFATE IN WATER 20 GM/500 ML IV.SOLN IV ONE (09:24)
[2018-04-04] MEDS ORDERED: ONDANSETRON 4 MG/2 ML VIAL ONE (09:44)
[2018-04-04 10:33] LABS: BASOPHILS # (AUTO) 0.1 10^3/uL (0.0-0.1); BASOPHILS % (AUTO) 0.9 %; EOSINOPHILS # (AUTO) 0.5 10^3/uL (0.0-0.7); EOSINOPHILS % (AUTO) 4.8 %; HGB - HEMOGLOBIN 10.9 g/dL (12.0-16.0); LYMPHOCYTES # (AUTO) 1.8 10^3/uL (1.5-3.5); LYMPHOCYTES % (AUTO) 16.1 %; MEAN CORPUSCULAR HGB CONC 33.6 g/dL (32.0-36.0); MEAN CORPUSCULAR VOLUME 80.3 fL (81.0-99.0); MEAN PLATELET VOLUME 8.1 fL (7.9-10.8); MONOCYTES # (AUTO) 0.6 10^3/uL (0.0-1.0); MONOCYTES % (AUTO) 5.6 %; NEUTROPHILS # (AUTO) 8.1 10^3/uL (1.5-6.6); NEUTROPHILS % (AUTO) 72.6 %; PLT - PLATELET COUNT 255 10^3/uL (130-450); RED BLOOD COUNT 4.03 10^6/uL (4.20-5.40); RED CELL DISTRIBUTION WIDTH 13.1 % (12.0-15.0); WHITE BLOOD COUNT 11.1 x10^3/uL (4.8-10.8)
[2018-04-04] MEDS ORDERED: POTASSIUM CHLORIDE INJ 40 MEQ in SODIUM CHLORIDE 0.9% 480 ML IV ONE (10:43)
[2018-04-04 10:45] LABS: URIC ACID 4.9 mg/dL (2.6-7.2)
--- NOTE | 2018-04-04 11:00 | CONSULTATION NOTE ---
DATE OF SERVICE: 04/04/2018 Physician: Bam Gillespie MD DIAGNOSIS: Recent (33-week 5-day) delivery Secondary to rupture of membranes, subsequent return for boarder status due to bilirubin therapy 2 events this morning, possibly seizure disorder or eclampsia . Mrs. Roberts is a 22-year-old [place] Primiparousdependent who was cared by [facility] and had an uneventful that did not involve gestational hypertension, preeclampsia, or gestational diabetes. She underwent a uneventful delivery at 33 weeks 5 days gestation at [facility]. She was observed early in the morning (Approximately 4 AM) to have involuntary movements of her 4 extremities that did not fit into a typical presentation for seizure. She did not have loss of urine or stool, nor did she have generalized tonic-clonic or typical Absence pattern seizure seizures. She experienced teeth chattering but no clinching of jaw. She was able to talk during this neurologic event. Internal Medicine was called for evaluation. Overall, her pressures have been stable but did rise after the event.. She was admitted through the emergency room. Reference Dr. Ramirez's note and Dr. Pabon's notes. [employer] MRI has not been accomplished yet. I informed Ester Raymond certified nurse health professor of the event since she was the patient's usual provider. I was called back at 0930 hours due to concerns about a second potential seizure event. Patient was reported to have overall shaking and weakness. An experienced nurse thought the presentation consistent with a probable seizure. Hospitalist rapid response team came first to the bedside, after which I interviewed the patient. She has no prior history of neurologic or seizure disorder. She does have a history of anxiety and depression that was treated with Prozac in the distant past. She reports generalized weakness and tremulousness without a headache. I had discussed the patient's situation earlier in the day with Pediatrics, Dr. Tony. He believes that the jaundice is related to and a 24-hour holiday was need and the patient could be allowed to go home. Dr. Spicer informed the patient of this opinion just prior to the second event.. At the time of my examination, a 4 g loading dose of magnesiu m sulfate had already been given. Patient reports prior problems with chronic anxiety and depression. She recently moved to [facility] and her is been deployed to [place] creating a major personal stress. Patient is very concerned about "something is wrong with my baby." . She has not been able to sleep for the l ast 5 days, only sleeping at most 1-2 hours a day. She has breast fed without difficulty. She is frightened that the baby's bili mask will slip off and result in retinal damage / blindness. With her away in [place], she feels very stressed by the baby's jaundice and absence of his support. PHYSICAL EXAMINATION VITAL SIGNS: Pulse 102, blood pressure 157/100 and 146/87. GENERAL: Patient lying comfortably in bed, flat affect, not in distress. ABDOMEN: Soft, nontender, uterus 16-week size. NEUROLOGIC: Cranial nerves grossly intact. Generalized weakness. The patient' s right arm is slightly more weak than left. Can move all 4 extremities though. Reflexes brisk; however, response to reflex is delayed. Clonus 0 beats bilaterally. PSYCHOLOGIC: Patient communicative, alert, oriented x3. Flattened affect as noted before. LABORATORY: Data reviewed. Potassium 3.4, hemoglobin 11.5, white count 11.0. Urinalysis with large occult blood, probably contamination. Small leukocyte esterase. Assessment: Patient has had a neurologic or possibly conversion event in which the underlying causation is not clear. I observed the majority of the first event but not the second episode.Neurologic evaluation by Internal Medicine underway and MRI pending. Eclamptic seizures 6 days post delivery are rare but may occur up to 10% of the time. There is no antecedent neurologic history. Patient's extreme anxiety, sleep deprivation and difficulties adjusting to maternal life in the absence of family support can lower a persons seizure threshold. At current time there are no focal neuro deficits evident. Even though the chance of late preeclampsia is small prophylaxis and exploration of this possibility is prudent. Patient requires medicine/ neurology evaluation to determine if there are other possible underlying causes such as undiscovered epilepsy, [employer] malformation, or [employer] tumor. Current exam somewhat altered probably due to mag effect. Though eclamptic seizures are rare in this timeframe, prophylaxis and preeclamptic workup would be prudent. PLAN 1. Continue mag sulfate at 2 grams an hour baseline rate with magnesium level in 6 hours. 2. Preeclamptic labs. 3. Continued neurologic workup with Internal Medicine. 4. Seizure precautions. TD: 04/04/2018 10:14 ROSAURA
[2018-04-04] MEDS: LORazepam 2 MG/ML VIAL IVP PRN ×2 (11:24→22:26)
[2018-04-04 11:46] LABS: BILIRUBIN,URINE NEGATIVE (NEGATIVE); GLUCOSE, URINE (UA) NEGATIVE (NEGATIVE); KETONES,URINE (UA) NEGATIVE (NEGATIVE); LEUKOCYTE ESTERASE, URINE NEGATIVE (NEGATIVE); NITRITE,URINE NEGATIVE (NEGATIVE); OCCULT BLOOD,URINE NEGATIVE (NEGATIVE); PH,URINE 6.5 PH (5.0-7.5); PROTEIN,URINE NEGATIVE (NEGATIVE); UROBILINOGEN,URINE 0.2 (NORMAL) E.U./dL (NORMAL)
[2018-04-04 12:05] LABS: CLARITY,URINE CLEAR (CLEAR)
[2018-04-04 12:06] LABS: CREATININE,URINE 28.2 mg/dL; TOTAL PROTEIN,URINE TIMED < 6 mg/dL
[2018-04-04 12:22] LABS: BACTERIA,URINE Rare /HPF (None Seen); RBC,URINE 0-5 /HPF (0-5); SQUAMOUS EPITHELIAL CELL,UR NONE SEEN (<= Few)
--- NOTE | 2018-04-04 15:05 | MRI Report ---
EXAM: MRI BRAIN WITHOUT CONTRAST EXAM DATE: 04/04/2018 02:33 PM. CLINICAL HISTORY: 22-year-old with history of vaginal delivery one week ago with recent seizure-like symptoms. Evaluate for intracranial pathology. COMPARISON: None. TECHNIQUE: Multiplanar, multisequence T1-weighted and fluid-sensitive MR sequences of the brain were performed. Sequences optimized for routine evaluation. Other: None. IV Contrast: None. FINDINGS: Motion artifact technically limits evaluation. Brain Volume: Normal for age. Parenchyma/Dura: No mass, acute infarct or hemorrhage. No white matter lesions identified. Hippocampi: The hippocampi appear symmetric in size and signal intensity. The internal architecture a ppears intact. Ventricles/Cisterns: No hydrocephalus. No abnormal extra-axial fluid collection or hemorrhage. Orbits: Symmetric and unremarkable. Sella Turcica: The pituitary gland, cavernous sinuses, suprasellar cistern and optic chiasm are unrem arkable. IAC: Symmetric and unremarkable. Vasculature: Normal signal flow void is seen in the major arterial structures at the skull base. Sinuses: Moderate left sphenoid sinus mucosal retention cyst versus polyp. Bones: No focal pathologic appearing marrow signal changes. Other: None. IMPRESSION: 1. Motion artifact technically limits evaluation. 2. When accounting for technical limitations no acute infarct, intracranial hemorrhage, mass, hydroce phalus, or midline shift. 2. When accounting for technical limitations no definite white matter lesions seen. 3. The hippocampi appear qualitatively symmetric in size with no evidence of mesial temporal lobe scl erosis. [facility] Referring Provider Line: [phone] SITE ID: [id number]
--- NOTE | 2018-04-04 17:51 | HISTORY & PHYSICAL EXAMINATION ---
DATE OF SERVICE: 04/04/2018 Physician: Bam Iyer MD PATIENT IDENTIFICATION: The patient is a 22-year-old G2, P1, AB1 female who delivered on 03/29/2018. CHIEF COMPLAINT: Seizures. HISTORY OF PRESENT ILLNESS: The patient states she felt somewhat ill at 2000 last evening. At that particular time, she developed shaking motions in both her hands and her shoulders. It appears as though she passed out x2 times. She denies voiding or loss of bowel content control during that time. However, after these episodes, she felt very tired. The patient denies any previous episodes of seizures. She did have some difficulty with tachycardia through the . She did have a single episode of some hypertension, which was normalized upon rechecking. She developed blood pressures of 150s/100s during this episode. PAST MEDICAL HISTORY: The patient denies any hypertensive, diabetic, cardiac or pulmonary disease. PAST SURGICAL HISTORY: Positive for a broken fifth digit in the left hand. ALLERGIES: NONE KNOWN. CURRENT MEDICATIONS: vitamins as well as magnesium sulfate. HABITS: The patient denies use of alcohol, tobacco, street drugs. SOCIAL HISTORY: The patient is . Spouse is currently deployed with the [employer]. FAMILY HISTORY: Negative for toxemia. There is a father with hypertension. REVIEW OF SYSTEMS: Negative otherwise. The patient does complain of a bit of foul smelling vaginal discharge. PHYSICAL EXAMINATION: GENERAL: Well-developed, well-nourished white female, in no acute distress at this time. VITAL SIGNS: The patient initially had blood pressures which were in the 150s/100s. Since being placed on magnesium, her blood pressures had ranged from 128-146 with diastolics running in the 80s. HEENT: Pupils equal, round. Extraocular muscles are intact. CARDIOVASCULAR: Regular rate and rhythm without murmurs. LUNGS: Lung serra are clear without rales or wheezes. ABDOMEN: Soft. Uterus is palpated roughly 3 to 4 fingers below the umbilicus and is nontender to direct palpation. VAGINAL: Vaginal exam was performed today to rule out any retained sponges. None were detected. EXTREMITIES: The patient's DTRs were checked and were noted to be very brisk, however, there is no clonus. IMPRESSION: 1. A 22-year-old G2, P1, AB1 female who delivered 6 days ago. 2. Eclamptic seizure. PLAN: The patient was placed on magnesium with a 4 gram load 2 grams an hour. Her blood pressures appear to be normalizing. She is also diuresing well at this time. The patient feels improved from her previous state. We will plan to run her magnesium sulfate for probably 24 hours, discontinue at that time if possible. Will monitor her blood pressures. TD: 04/04/2018 16:31
[2018-04-04] MEDS: MAGNESIUM SULFATE IN WATER 20 GM/500 ML IV.SOLN IV SCH (20:31)
[2018-04-05] MEDS: ACETAMINOPHEN 325 MG TABLET PO PRN ×2 (00:24→13:30)
[2018-04-05] MEDS ORDERED: LACTATED RINGERS 1,000 ML IV ONE ×2 (03:11→12:26)
[2018-04-05] MEDS: MAGNESIUM SULFATE IN WATER 20 GM/500 ML IV.SOLN IV SCH (05:47)
[2018-04-05] MEDS ORDERED: FERRIC GLUCONATE 125 MG in SODIUM CHLORIDE 0.9% 100ML 100 ML IV ONE (08:30)
[2018-04-05] MEDS ORDERED: HYDROcod/ACETAM 5/325 MG TABLET PO PRN (08:32)
--- NOTE | 2018-04-05 08:36 | PROVIDER PROGRESS NOTE ---
Subjective - Prog Note Date Prog Note Date: 04/05/18 Prog Note Time: 08:33 - Subjective Pt reports feeling: Improved Subjective: [place] in bed, on smart phone and video chatting. Baby at bedside in bassinet, off of phototherapy currently. No overnight events. Had a headache and took Tylenol. Also has a little blurriness/ double vision. Denies epigastric pain/ RUQ pain. Wants to ambulate but still on MgSO4. Reid catheter irritating patient. Objective - Vital Signs/Intake & Output Reviewed Vital Signs: Yes Vital Signs: Vital Signs x48h Temp Pulse Resp BP Pulse Ox 04/05/18 05:48 99 16 128/79 98 04/05/18 03:31 105 H 04/05/18 03:20 98.4 F 115 H 20 129/79 99 04/05/18 01:56 97 16 126/78 98 Intake & Output: Intake & Output 04/02/18 04/03/18 04/04/18 04/05/18 23:59 23:59 23:59 23:59 Intake Total 500 1463.333 Output Total 2300 2850 Balance -1800 -1386.667 - Objective General Appearance: positive: No acute distress Eyes Bilateral: positive: Normal inspection Abdomen: positive: Non-tender (Benign, no periteoneal signs.) Neurologic/Psychiatric: positive: Oriented x3, Mood/affect nml - Lab Results Fish Bones: 04/04/18 10:25 04/04/18 05:50 Other Labs: Lab Results x24hrs 04/04/18 Range/Units 19:50 Magnesium 5.1 H* (1.7-2.8) mg/dL Assessment/Plan - Problem List (1) Eclampsia during puerperium, Impression: 22 yo S/p 03/29/2018, PPD #7. Resolving atypical eclampsia, 04/04/2018. Patient had elevated BP's after her event and thrombocytopenia noted 03/30/2018. Patient diuresing well, pressures normotensive. Will repeat labs today. Stop magnesium sulfate and continue to monitor. Anticipate discharge to home tomorrow. Iron deficiency anemia, will do iron transfusion.
[2018-04-05 09:03] LABS: BASOPHILS # (AUTO) 0.1 10^3/uL (0.0-0.1); BASOPHILS % (AUTO) 0.6 %; EOSINOPHILS # (AUTO) 0.6 10^3/uL (0.0-0.7); EOSINOPHILS % (AUTO) 4.9 %; HGB - HEMOGLOBIN 11.3 g/dL (12.0-16.0); LYMPHOCYTES % (AUTO) 16.9 %; MEAN CORPUSCULAR HEMOGLOBIN 26.8 pg (27.0-31.0); MEAN CORPUSCULAR HGB CONC 33.2 g/dL (32.0-36.0); MEAN CORPUSCULAR VOLUME 80.6 fL (81.0-99.0); MEAN PLATELET VOLUME 8.3 fL (7.9-10.8); MONOCYTES # (AUTO) 0.7 10^3/uL (0.0-1.0); MONOCYTES % (AUTO) 6.4 %; NEUTROPHILS # (AUTO) 8.4 10^3/uL (1.5-6.6); NEUTROPHILS % (AUTO) 71.2 %; PLT - PLATELET COUNT 267 10^3/uL (130-450); RED BLOOD COUNT 4.22 10^6/uL (4.20-5.40); RED CELL DISTRIBUTION WIDTH 13.1 % (12.0-15.0); WHITE BLOOD COUNT 11.7 x10^3/uL (4.8-10.8)
[2018-04-05 09:22] LABS: ALBUMIN 2.9 g/dL (3.2-5.5); ALBUMIN/GLOBULIN RATIO 0.8 (1.0-2.2); BILIRUBIN,TOTAL 0.5 mg/dL (0.2-1.0); CREATININE 0.6 mg/dL (0.4-1.0); PHOSPHORUS 2.8 mg/dL (2.5-4.6); TOTAL PROTEIN 6.5 g/dL (6.7-8.2)
[2018-04-05 09:23] LABS: CALCIUM 6.4 mg/dL (8.5-10.3); MAGNESIUM 5.9 mg/dL (1.7-2.8)
[2018-04-05] MEDS ORDERED: LORazepam 0.5 MG TABLET PO PRN (13:00)
--- NOTE | 2018-04-05 13:04 | PROVIDER PROGRESS NOTE ---
Subjective - Prog Note Date Prog Note Date: 04/05/18 Prog Note Time: 13:00 - Subjective Pt reports feeling: No change Subjective: Patient has told the OB RN that she has anxiety. Was on Prozac as a teenager. On MgSO4 x 28 hours. Diuresing continuing. Has not slept. Objective - Vital Signs/Intake & Output Vital Signs: Vital Signs x48h Pulse Resp BP Pulse Ox 04/05/18 05:48 99 16 128/79 98 Intake & Output: Intake & Output 04/02/18 04/03/18 04/04/18 04/05/18 23:59 23:59 23:59 23:59 Intake Total 500 1463.333 Output Total 2300 2850 Balance -1800 -1386.667 - Lab Results Fish Bones: 04/05/18 08:49 04/05/18 08:49 Other Labs: Lab Results x24hrs 04/05/18 04/05/18 04/04/18 Range/Units 08:49 08:49 19:50 WBC 11.7 H (4.8-10.8) x10^3/uL RBC 4.22 (4.20-5.40) 10^6/uL Hgb 11.3 L (12.0-16.0) g/dL Hct 34.0 L (37.0-47.0) % MCV 80.6 L (81.0-99.0) fL MCH 26.8 L (27.0-31.0) pg MCHC 33.2 (32.0-36.0) g/dL RDW 13.1 (12.0-15.0) % Plt Count 267 (130-450) 10^3/uL MPV 8.3 (7.9-10.8) fL Neut # 8.4 H (1.5-6.6) 10^3/uL Lymph # 2.0 (1.5-3.5) 10^3/uL Bethel # 0.7 (0.0-1.0) 10^3/uL Eos # 0.6 (0.0-0.7) 10^3/uL Baso # 0.1 (0.0-0.1) 10^3/uL Absolute Nucleated RBC 0.00 x10^3/uL Nucleated RBC % 0.0 /100WBC Sodium 136 (135-145) mmol/L Potassium 3.3 L (3.5-5.0) mmol/L Chloride 103 (101-111) mmol/L Carbon Dioxide 25 (21-32) mmol/L Anion Gap 8.0 (6-13) BUN 6 (6-20) mg/dL Creatinine 0.6 (0.4-1.0) mg/dL Estimated GFR (MDRD) 127 (>89) Glucose 104 H (70-100) mg/dL Calcium 6.4 L* (8.5-10.3) mg/dL Phosphorus 2.8 (2.5-4.6) mg/dL Magnesium 5.9 H* 5.1 H* (1.7-2.8) mg/dL Total Bilirubin 0.5 (0.2-1.0) mg/dL AST 24 (10-42) IU/L ALT 19 (10-60) IU/L Alkaline Phosphatase 73 (42-121) IU/L Total Protein 6.5 L (6.7-8.2) g/dL Albumin 2.9 L (3.2-5.5) g/dL Globulin 3.6 (2.1-4.2) g/dL Albumin/Globulin Ratio 0.8 L (1.0-2.2) Assessment/Plan - Problem List (1) Eclampsia during puerperium, Impression: 22 yo S/p S/p 03/29/2018 S/p eclamptic seizure 04/04/2018 (until proven otherwise) On MgSO4 x 28 hours and clinically improving Will stop MgSO4 Start PRN oral ativan Continue observation Hopefully home tomorrow.
[2018-04-05] MEDS: LORazepam 2 MG/ML VIAL IVP PRN (13:31)
[2018-04-05] MEDS: SODIUM CHLORIDE FLUSH 0.9% 10 ML SYRINGE IVP SCH ×2 (13:31→19:03)
[2018-04-05] MEDS: IBUPROFEN 800 MG TABLET PO SCH ×2 (14:00→22:41)
[2018-04-05 15:19] LABS: BILIRUBIN,URINE NEGATIVE (NEGATIVE); GLUCOSE, URINE (UA) NEGATIVE (NEGATIVE); KETONES,URINE (UA) NEGATIVE (NEGATIVE); LEUKOCYTE ESTERASE, URINE NEGATIVE (NEGATIVE); NITRITE,URINE NEGATIVE (NEGATIVE); OCCULT BLOOD,URINE NEGATIVE (NEGATIVE); PROTEIN,URINE NEGATIVE (NEGATIVE); UROBILINOGEN,URINE 0.2 (NORMAL) E.U./dL (NORMAL)
[2018-04-05 15:20] LABS: CLARITY,URINE CLEAR (CLEAR)
--- NOTE | 2018-04-05 17:25 | PROVIDER PROGRESS NOTE ---
Subjective - Prog Note Date Prog Note Date: 04/05/18 Prog Note Time: 17:23 - Subjective Pt reports feeling: Improved Subjective: Patient in the room, standing and holding baby. Ambulating and has taken a shower. Feels that both she and the baby are doing well and wants to go home. States she cannot sleep in the hospital and has help to watch both her and the baby. Patient reports she has not slept in 8 days. Objective - Vital Signs/Intake & Output Reviewed Vital Signs: Yes Intake & Output: Intake & Output 04/02/18 04/03/18 04/04/18 04/05/18 23:59 23:59 23:59 23:59 Intake Total 500 1463.333 Output Total 2300 5450 Balance -1800 -3986.667 - Objective General Appearance: positive: No acute distress Neurologic/Psychiatric: positive: Oriented x3, Other (Anxious affect.) - Lab Results Fish Bones: 04/05/18 08:49 04/05/18 08:49 Other Labs: Lab Results x24hrs 04/05/18 04/05/18 04/05/18 Range/Units 13:45 08:49 08:49 WBC 11.7 H (4.8-10.8) x10^3/uL RBC 4.22 (4.20-5.40) 10^6/uL Hgb 11.3 L (12.0-16.0) g/dL Hct 34.0 L (37.0-47.0) % MCV 80.6 L (81.0-99.0) fL MCH 26.8 L (27.0-31.0) pg MCHC 33.2 (32.0-36.0) g/dL RDW 13.1 (12.0-15.0) % Plt Count 267 (130-450) 10^3/uL MPV 8.3 (7.9-10.8) fL Neut # 8.4 H (1.5-6.6) 10^3/uL Lymph # 2.0 (1.5-3.5) 10^3/uL Davidson # 0.7 (0.0-1.0) 10^3/uL Eos # 0.6 (0.0-0.7) 10^3/uL Baso # 0.1 (0.0-0.1) 10^3/uL Absolute Nucleated RBC 0.00 x10^3/uL Nucleated RBC % 0.0 /100WBC Sodium 136 (135-145) mmol/L Potassium 3.3 L (3.5-5.0) mmol/L Chloride 103 (101-111) mmol/L Carbon Dioxide 25 (21-32) mmol/L Anion Gap 8.0 (6-13) BUN 6 (6-20) mg/dL Creatinine 0.6 (0.4-1.0) mg/dL Estimated GFR (MDRD) 127 (>89) Glucose 104 H (70-100) mg/dL Calcium 6.4 L* (8.5-10.3) mg/dL Phosphorus 2.8 (2.5-4.6) mg/dL Magnesium 5.9 H* (1.7-2.8) mg/dL Total Bilirubin 0.5 (0.2-1.0) mg/dL AST 24 (10-42) IU/L ALT 19 (10-60) IU/L Alkaline Phosphatase 73 (42-121) IU/L Total Protein 6.5 L (6.7-8.2) g/dL Albumin 2.9 L (3.2-5.5) g/dL Globulin 3.6 (2.1-4.2) g/dL Albumin/Globulin Ratio 0.8 L (1.0-2.2) Urine Color STRAW Urine Clarity CLEAR (CLEAR) Urine pH 7.0 (5.0-7.5) PH Ur Specific [place] 1.015 (1.002-1.030) Urine Protein NEGATIVE (NEGATIVE) mg/dL Urine Glucose (UA) NEGATIVE (NEGATIVE) mg/dL Urine Ketones NEGATIVE (NEGATIVE) mg/dL Urine Occult Blood NEGATIVE (NEGATIVE) Urine Nitrite NEGATIVE (NEGATIVE) Urine Bilirubin NEGATIVE (NEGATIVE) Urine Urobilinogen 0.2 (NORMAL) (NORMAL) E.U./dL Ur Leukocyte Esterase NEGATIVE (NEGATIVE) Ur Microscopic Review NOT INDICATED Urine Culture Comments NOT INDICATED 04/04/18 Range/Units 19:50 WBC (4.8-10.8) x10^3/uL RBC (4.20-5.40) 10^6/uL Hgb (12.0-16.0) g/dL Hct (37.0-47.0) % MCV (81.0-99.0) fL MCH (27.0-31.0) pg MCHC (32.0-36.0) g/dL RDW (12.0-15.0) % Plt Count (130-450) 10^3/uL MPV (7.9-10.8) fL Neut # (1.5-6.6) 10^3/uL Lymph # (1.5-3.5) 10^3/uL Davidson # (0.0-1.0) 10^3/uL Eos # (0.0-0.7) 10^3/uL Baso # (0.0-0.1) 10^3/uL Absolute Nucleated RBC x10^3/uL Nucleated RBC % /100WBC Sodium (135-145) mmol/L Potassium (3.5-5.0) mmol/L Chloride (101-111) mmol/L Carbon Dioxide (21-32) mmol/L Anion Gap (6-13) BUN (6-20) mg/dL Creatinine (0.4-1.0) mg/dL Estimated GFR (MDRD) (>89) Glucose (70-100) mg/dL Calcium (8.5-10.3) mg/dL Phosphorus (2.5-4.6) mg/dL Magnesium 5.1 H* (1.7-2.8) mg/dL Total Bilirubin (0.2-1.0) mg/dL AST (10-42) IU/L ALT (10-60) IU/L Alkaline Phosphatase (42-121) IU/L Total Protein (6.7-8.2) g/dL Albumin (3.2-5.5) g/dL Globulin (2.1-4.2) g/dL Albumin/Globulin Ratio (1.0-2.2) Urine Color Urine Clarity (CLEAR) Urine pH (5.0-7.5) PH Ur Specific [place] (1.002-1.030) Urine Protein (NEGATIVE) mg/dL Urine Glucose (UA) (NEGATIVE) mg/dL Urine Ketones (NEGATIVE) mg/dL Urine Occult Blood (NEGATIVE) Urine Nitrite (NEGATIVE) Urine Bilirubin (NEGATIVE) Urine Urobilinogen (NORMAL) E.U./dL Ur Leukocyte Esterase (NEGATIVE) Ur Microscopic Review Urine Culture Comments Assessment/Plan - Problem List (1) Eclampsia during puerperium, Impression: 22 yo S/p eclamptic event 04/04/2018 9:15 AM. Stopped at 1:00 PM from 28 hours of MgSO4. Clinically improved. Will continue to watch the patient. Recommended to the patient that she should stay for observation until tomorrow. Patient does not want to stay. Told patient she may leave AMA.
[2018-04-05] MEDS: SODIUM CHLORIDE FLUSH 0.9% 10 ML SYRINGE IVP PRN (20:12)
[2018-04-05] MEDS: MAGNESIUM SULFATE 2 GRAM 2 GM/50 ML BAG IV SCH (22:03)
[2018-04-06] MEDS: SODIUM CHLORIDE FLUSH 0.9% 10 ML SYRINGE IVP PRN (04:07)
--- NOTE | 2018-04-06 05:59 | Discharge Plan ---
Discharge Plan Disposition: Home, Self Care Condition: Good Diet: Regular Activity Restrictions: pelvic rest x6 weeks Shower Restrictions: No Driving Restrictions: No Weight Bearing: Full Weight Instruction Topics: Vaginal After, Breastfeed How To, Preeclampsia, Exercises Kegel Additional Instructions or Follow Up instructions: Follow up 04/09 for BP check & visit No Smoking: If you smoke, Please STOP! Call for help. Follow-up with: Ester Chang CNM, KIKI [Provider Admit Priv/Credential] -
--- NOTE | 2018-04-06 06:04 | DISCHARGE SUMMARY ---
"Discharge Summary Admit Date: 04/04/18 Discharge Date: 04/06/18 Discharging Provider: YONATHAN Code Status: Attempt Resuscitation Condition at Discharge: Good Discharge Disposition: 01 Home, Self Care Discharge Facility Name: [facility] - DIAGNOSES Admission Diagnoses: SEIZURE, X4 DAYS - HPI History of Present Illness: JOSE SARGENT IS A 22 Y/O WHO IS S/P 03/29/2018 W/O LACERATION OR COMPLICATION. SHE WAS AT [facility] 04/04/2018 WHEN HER WAS READMITTED FOR PHOTOTHERAPY FOR HYPERBILIRUBINEMIA & WAS OBSERVED BY STAFF TO BE HAVING CONVULSIONS CONSISTENT W/ SEIZURE ACTIVITY. SHE WAS EVALUATED IN THE ED & ADMITTED TO THE HOSPITALIST SERVICE. SHE HAD INTERMITTENTLY ELEVATED BPS AND TRANSIENTLY DECREASED PLATELETS BUT NO CLEAR EVIDENCE OF PRE-ECLAMPSIA. THE SEIZURE ACTIVITY WAS PRESUMED TO HAVE BEEN ECLAMPTIC SECONDARY TO HER STATUS & SHE RECEIVED MAGNESIUM SULFATE THERAPY ACCORDINGLY X24 HOURS. SHE DID NOT REQUIRE ANTIHYPERTENSIVE THERAPY. S /P DISCONTINUATION OF MAGNESIUM SULFATE, SHE IS NORMOTENSIVE & HAS HAD NO FURTHER SEIZURE ACTIVITY. HER LABS ARE STABLE & MOST RECENT PLATELET VALUE IS 267K. - CONSULTS | PROCEDURES Consultations: HOSPITALIST, OBSTETRICS Procedures: MAGNESIUM SULFATE INFUSION X24 HOURS - HOSPITAL COURSE Hospital Course: JOSE IS AMBULATING & VOIDING WITHOUT DIFFICULTY. SHE IS TOLERATING A REGULAR DIET. SHE IS HER INFANT W/O DISCOMFORT & IS SUPPLEMENTING WITH FORMULA TO DECREASE HIS BILIRUBIN MORE RAPIDLY. SHE IS ADDITIONALLY PUMPING HER B/L BREASTS & CAN READILY EXPRESS 3-4OZ IN A PUMPING SESSION FROM EACH SIDE. SHE REPORTS MINIMAL LOCHIA RUBRA. SHE HAS NO DISCOMFORT. SHE DENIES DENISE/VISUAL DISTURBANCE/ABDOMINAL OR SHOULDER DISCOMFORT. SHE REPORTS EXCELLENT SOCIAL SUPPORT & 04/06 PRESENCE OF A SUPPORTIVE FAMILY MEMBER. SHE LIVES WITH HER MOTHER & HER SISTER. SHE IS ABLE TO FULLY ARTICULATE PP WARNING S/SX, INCLUDING PP PET WARNING S/SX, AND SHE PLANS TO RETURN FOR OUTPATIENT EVALUATION 04/09. SHE HAS EMERGENCY CONTACT INFORMATION & REPORTS SHE WILL HAVE A LOW THRESHOLD FOR UTILIZING IT. SHE IS EAGER TO LEAVE THE HOSPITAL. - ALLERGIES Allergies/Adverse Reactions: Allergies Allergy/AdvReac Type Severity Reaction Status Date / Time No Known Drug Allergies Allergy Verified 04/04/18 05:44 - PHYSICAL EXAM AT DISCHARGE General Appearance: positive: No acute distress, Alert Eyes Bilateral: positive: Normal inspection, PERRL, EOMI, No scleral icterus ENT: positive: ENT inspection nml Respiratory: positive: Chest non-tender, No respiratory distress, Breath sounds nml Cardiovascular: positive: Regular rate & rhythm, No murmur, No gallop Peripheral Pulses: positive: 2+ Abdomen: positive: Non-tender, Nml bowel sounds, No distention, Other (FF U-4) Skin: positive: Color nml, No rash, Warm, Dry Extremities: positive: Non-tender, Full ROM, Nml appearance, No pedal edema. negative: Calf tenderness, Dante's sign/cords Neurologic/Psychiatric: positive: Oriented x3, CN's nml (2-12), Motor nml, Sensation nml, Mood/affect nml. negative: Weakness, Facial droop, Slurred/ abnml speech Physical Exam Other/Comments: BREASTS B/L FULL, NT; NIPPLES B/L INTACT & EVERTED; MATURE MILK READILY EXPRESSED - LABS Result Diagrams: 04/05/18 08:49 04/05/18 08:49 - FOLLOW UP Follow Up: 04/09/2018 IN OUTPATIENT CLINIC W/ SIERRA BRICEÑO CNM, E[facility]ER PRN - TIME SPENT Time Spent in Discharge (Minutes): 20"
[2018-04-06] MEDS: IBUPROFEN 800 MG TABLET PO SCH (07:39)
[2018-04-06 09:06] VITALS: BP 121/78
--- NOTE | 2018-04-06 10:38 | Labor Flowsheet ---
Labor Flowsheet Datetime Report Generated by CPN: 04/06/2018 10:38 Datetime: 04/04/2018 13:00 VITAL SIGNS NBP Sys/Lety/Mean (mmHg): 122 : 74 : 86 Pulse: 94 COMMUNICATION LaborFlag: Labor Datetime: 04/04/2018 10:19 SpO2 (%): 99
== END 2018-04-06 10:30 | disposition home or self-care (01) | DRG 776 ==
LOC: ED 05:38 → FBP 06:20 → OBSVTOIN 18:20
PROVIDERS: ADMIT Specialist; ATTEND Registered Nurse
DX: O15.2 Eclampsia complicating the puerperium (principal); O99.285 Endocrine, nutritional and metabolic diseases complicating the puerperium; E83.39 Other disorders of phosphorus metabolism; E87.6 Hypokalemia; O99.345 Other mental disorders complicating the puerperium; F41.9 Anxiety disorder, unspecified; O90.81 Anemia of the puerperium; D50.9 Iron deficiency anemia, unspecified; Z72.820 Sleep deprivation; Z82.49 Family history of ischemic heart disease and other diseases of the circulatory system; Z87.51 Personal history of pre-term labor; Z63.79 Other stressful life events affecting family and household
CPT/HCPCS: 36415; 70551; 80053; 81001; 81003; 82570; 83615; 83690; 83735; 84100; 84156; 84450; 84550; 85025; 85384; 87086; 96365; 96375; 99283; 99284

== ENCOUNTER 2018-04-09 13:54 | Emergency (ER) | payer OTHER ==
[2018-04-09 14:33] VITALS: BP 134/84
--- NOTE | 2018-04-09 15:19 | ED Physician Documentation ---
PD HPI WOUND RECHECK - Stated complaint Stated Complaint: REDNESS/SWELLING/WARM AT I/V SITE - Chief complaint Chief Complaint: Wound - Histroy obtained from History obtained from: Patient - History of Present Illness Location: Right Upper Extremity (She was admitted and later discharged for post eclampsia. She was discharged 3 days ago, has spreading redness and swelling around R AC IV site.) PD PAST MEDICAL HISTORY - Past Medical History Past Medical History: Yes Cardiovascular: None Respiratory: None Neuro: Seizure disorder Endocrine/Autoimmune: None GI: None AUTOMOTIVE PARTS COUNTERPERSON: None : None HEENT: None Psych: None Musculoskeletal: Other Derm: None - Past Surgical History Past Surgical History: Yes - Allergies Allergies/Adverse Reactions: Allergies Allergy/AdvReac Type Severity Reaction Status Date / Time No Known Drug Allergies Allergy Verified 04/04/18 05:44 - Social History Does the pt smoke?: No Smoking Status: Never smoker Does the pt drink ETOH?: No Does the pt have substance abuse?: No - Immunizations Immunizations are current?: No - POLST Patient has POLST: No POLST Status: Full Code PD ED PE NORMAL - Vitals Vital signs reviewed: Yes - General General: Alert and oriented X 3, No acute distress - Extremities Extremities: Other (She has mild superficial phlebitis of the medial right antecubital fossa with tenderness but no limited range of motion or cellulitis. No tenderness or lymphadenopathy in the axilla.) - Neuro Neuro: Alert and oriented X 3, Normal speech Results - Vitals Vitals: Vital Signs - 24 hr 04/09/18 14:29 Temperature 36.6 C Heart Rate 101 H Respiratory 18 Rate Blood Pressure 134/84 H O2 Saturation 100 Oxygen O2 Source Room air Departure - Departure Disposition: 01 Home, Self Care Clinical Impression: Superficial phlebitis Condition: Good Record reviewed to determine appropriate education?: Yes Instructions: ED Phlebitis Superficial
== END 2018-04-09 15:40 | disposition home or self-care (01) ==
LOC: ED 13:54
DX: T81.72XA Complication of vein following a procedure, not elsewhere classified, initial encounter (principal); I80.8 Phlebitis and thrombophlebitis of other sites; Y84.8 Other medical procedures as the cause of abnormal reaction of the patient, or of later complication, without mention of misadventure at the time of the procedure
CPT/HCPCS: 99282

== ENCOUNTER 2020-01-08 20:55 | Emergency (ER) | payer OTHER ==
[2020-01-08 21:03] VITALS: BP 112/81
[2020-01-08 21:13] LABS: RAPID STREP SCREEN Negative (Negative)
--- NOTE | 2020-01-08 21:35 | ED Physician Documentation ---
PD HPI HEENT - Stated complaint Stated Complaint: SORE THROAT/ FEVER/ DENISE - Chief complaint Chief Complaint: Heent - History obtained from History obtained from: Patient - History of Present Illness Timing - onset: Yesterday (Sore throat, runny nose, nonproductive cough since last night. No fevers. She has some ear pressure bilaterally. She is a G2 at 11 weeks without trouble otherwise during this . No cramping or bleeding.) Review of Systems Constitutional: denies: Fever, Chills Nose: reports: Rhinorrhea / runny nose Throat: reports: Sore throat Respiratory: reports: Cough. denies: Dyspnea GI: denies: Vomiting, Diarrhea PD PAST MEDICAL HISTORY - Past Medical History Cardiovascular: None Respiratory: None Neuro: Seizure disorder Endocrine/Autoimmune: None GI: None AUDIO VISUAL SPECIALIST: None : None HEENT: None Psych: None Musculoskeletal: Other Derm: None - Past Surgical History Past Surgical History: Yes - Allergies Allergies/Adverse Reactions: Allergies Allergy/AdvReac Type Severity Reaction Status Date / Time No Known Drug Allergies Allergy Verified 04/04/18 05:44 - Social History Does the pt smoke?: No Smoking Status: Never smoker Does the pt drink ETOH?: No Does the pt have substance abuse?: No - Immunizations Immunizations are current?: No - POLST Patient has POLST: No POLST Status: Full Code PD ED PE NORMAL - Vitals Vital signs reviewed: Yes - General General: Alert and oriented X 3, No acute distress - HEENT HEENT: PERRL, EOMI, Other (Red tonsillar pillars without exudates or swelling, no adenopathy. TMs are normal.) - Neck Neck: Supple, no meningeal sign - Cardiac Cardiac: RRR, No murmur - Respiratory Respiratory: No respiratory distress, Clear bilaterally - Abdomen Abdomen: Non tender - Female Female : Other (Bedside ultrasound demonstrates single live intrauterine with a heart rate in the 170s.) - Derm Derm: No rash Results - Vitals Vitals: Vital Signs - 24 hr 01/08/20 20:59 Temperature 37.2 C Heart Rate 112 H Respiratory 16 Rate Blood Pressure 112/81 H O2 Saturation 100 Oxygen O2 Source Room air - Labs Labs: Laboratory Tests 01/08/20 21:03 Group A Strep Rapid Negative Departure - Departure Disposition: Home, Self Care Clinical Impression: Viral URI with cough Condition: Good Record reviewed to determine appropriate education?: Yes Instructions: ED Viral Syndrome Comments: You can take Robitussin [id number] as well as Tylenol for your symptoms. Avoid pseudoephedrine and other decongestants. Also avoid ibuprofen. Return for new or worsening symptoms. Follow-up with your doctor on Sunday if n ot better.
== END 2020-01-08 21:38 | disposition home or self-care (01) ==
LOC: ED 20:55
DX: O99.89 Other specified diseases and conditions complicating pregnancy, childbirth and the puerperium (principal); J06.9 Acute upper respiratory infection, unspecified; Z3A.11 11 weeks gestation of pregnancy
CPT/HCPCS: 87070; 87430; 99282; 99283

== ENCOUNTER 2020-06-29 07:00 | Outpatient (CLI) | payer OTHER ==
[2020-06-29 19:01] LABS: TRICHOMONAS VAGINALIS DNA NEGATIVE (NEGATIVE)
== END 2020-06-29 23:59 | disposition home or self-care (01) ==
LOC: LAB.R 07:00
PROVIDERS: ATTEND Obstetrics & Gynecology
DX: Z36.85 Encounter for antenatal screening for Streptococcus B (principal); Z11.3 Encounter for screening for infections with a predominantly sexual mode of transmission
CPT/HCPCS: 87491; 87591; 87661; 87797

== ENCOUNTER 2020-07-22 17:26 | Inpatient (IN) | payer OTHER ==
[2020-07-22] MEDS ORDERED: SODIUM CHLORIDE FLUSH 0.9% 10 ML SYRINGE IVP PRN ×2 (19:43)
[2020-07-22] MEDS ORDERED: MAGNESIUM SULFATE 2 GRAM 2 GM/50 ML BAG IV PRN ×2 (19:43)
[2020-07-22] MEDS ORDERED: LABETALOL 5 MG/1 ML 20 ML MDV IVP PRN (19:43)
[2020-07-22] MEDS ORDERED: LIDOCAINE-MPF 1% 30 ML VIAL ID PRN (19:43)
[2020-07-22] MEDS ORDERED: TRANEXAMIC ACID 1,000 MG in SODIUM CHLORIDE 0.9% 100ML 100 ML IV PRN (19:43)
[2020-07-22] MEDS ORDERED: ONDANSETRON ODT 4 MG TABLET TL PRN (19:43)
[2020-07-22] MEDS ORDERED: OXYTOCIN 10 UNIT/ML VIAL IM PRN (19:43)
[2020-07-22] MEDS ORDERED: ONDANSETRON 4 MG/2 ML VIAL IVP PRN (19:43)
[2020-07-22] MEDS ORDERED: miSOPROStoL 200 MCG TABLET BC ONE (19:43)
[2020-07-22] MEDS ORDERED: METOCLOPRAMIDE 10 MG/2 ML VIAL IVP PRN (19:43)
[2020-07-22] MEDS ORDERED: METHYLERGONOVINE 0.2 MG/ML VIAL IM PRN (19:43)
[2020-07-22] MEDS ORDERED: miSOPROStoL 200 MCG TABLET BC PRN ×2 (19:43)
[2020-07-22] MEDS ORDERED: METOCLOPRAMIDE 10 MG TABLET PO PRN (19:43)
[2020-07-22] MEDS ORDERED: CARBOPROST TROMETHAMINE 250 MCG/ML AMP IM PRN ×2 (19:43)
[2020-07-22] MEDS ORDERED: OXYTOCIN/SODIUM CHLORIDE 500 ML IV PRN ×2 (19:43)
[2020-07-22] MEDS ORDERED: LACTATED RINGERS 1,000 ML IV SCH (20:00)
[2020-07-22] MEDS ORDERED: OXYTOCIN/SODIUM CHLORIDE 500 ML IV SCH (20:00)
[2020-07-22 20:05] LABS: BASOPHILS % (AUTO) 0.3 %; EOSINOPHILS % (AUTO) 0.3 %; HGB - HEMOGLOBIN 12.3 g/dL (12.0-16.0); LYMPHOCYTES # (AUTO) 1.6 10^3/uL (1.5-3.5); LYMPHOCYTES % (AUTO) 13.9 %; MEAN CORPUSCULAR HEMOGLOBIN 28.3 pg (27.0-31.0); MEAN CORPUSCULAR HGB CONC 33.7 g/dL (32.0-36.0); MEAN CORPUSCULAR VOLUME 83.9 fL (81.0-99.0); MEAN PLATELET VOLUME 12.9 fL (7.9-10.8); MONOCYTES # (AUTO) 0.7 10^3/uL (0.0-1.0); MONOCYTES % (AUTO) 6.4 %; NEUTROPHILS # (AUTO) 8.9 10^3/uL (1.5-6.6); NEUTROPHILS % (AUTO) 78.3 %; PLT - PLATELET COUNT 151 10^3/uL (130-450); RED BLOOD COUNT 4.35 10^6/uL (4.20-5.40); RED CELL DISTRIBUTION WIDTH 12.8 % (12.0-15.0); WHITE BLOOD COUNT 11.3 x10^3/uL (4.8-10.8)
--- NOTE | 2020-07-22 20:07 | HISTORY & PHYSICAL EXAMINATION ---
Admit History - Visit Reason Visit Reason: Other (Induction of labor) - : 3 Parity: 1 Care: positive: [facility], Other (Transfer to [facility] at 34 weeks) Risk/History: positive: induced HTN Complications This : positive: induced HTN Smoking Status: Never smoker - Mother's Labs Mother's Blood Type: positive: O Mother's RH: positive: Negative GBS: positive: Group B Step Negative Rubella Status: positive: Immune - Other Maternal History Other Maternal History: Patient is a 24 yo at 38+6 wga here for induction of labor. Hx of eclamptic seizure in prior in the period. No elevated BPs prior to eclampsia. Has been on ASA this . Didnt feel right yesterday and had BP at home of 140s over 90s this am. Seen in clinic for routine PNC and had two elevated blood pressures in the 140s/90s. No DENISE/vision change/RUQ pain. Endorses FM. O neg/ Rub imm RPR beg GCCT neg HIV neg Hep C Ab neh GBS neg Dating: LMP of 10/24/2019 gives RADHA 07/30/2020. US on 01/16/2020 at 11w5 d gives RADHA 08/01/20; consistent with dates. History of eclamptic seizure, on ASA 81 mg, blood pressures mildly elevated. Feeling unwell labs: O negative\\antibody negative. Rubella immune/VZV nonimmune. Hep B surface antigen negative. Hep C negative, RPR negative. HIV nonreactive.GCCT negative. IS wnl FAS wnl, anterior placenta 48%ile 3VC Hematocrit 38.3 Glucola 125. Tdap given 05/21/2020. RhoGAM given 05/21/2020. Breast pump Rx given. Last Pap 01/16/2020 Denies HSV GBS neg GCCT neg. Confirmed vertex by bedside ultrasound. Pap NILM 01/16/2020 (hx of ASCUS-H) Mode of delivery: Anticipate . Meds/Allgy - Allergies Allergies/Adverse Reactions: Allergies Allergy/AdvReac Type Severity Reaction Status Date / Time No Known Drug Allergies Allergy Verified 04/04/18 05:44 Review of Systems - Other Findings Other Findings: As per HPI, otherwise remaining systems are negative Physical - Abdominal Exam Vital Signs: Temp Pulse Resp BP Pulse Ox 98.1 F 88 17 146/89 H 07/22/20 18:18 07/22/20 18:18 07/22/20 18:18 07/22/20 18:18 Contraction Frequency (min/apart): intermittent Contraction Intensity: positive: Mild Uterine Resting Tone: positive: Soft - Monitoring Heart Rate Baseline: 130 mod diamante 15x15 accels no decels Strip Review: positive: Category I - Presentation Presentation: positive: Vertex - Vaginal Exam Membranes: positive: Membranes intact Dilation (in cm): 2 Effacement (%): 80 Station: positive: -1 Cervical Position: positive: Midposition - Speculum Exam Speculum Exam Performed: positive: No Plan for Labor - Plan For Labor Plan for Labor: IOL: -Will start with misoprostol 50 mcg BC x2 doses Borderline favorable, Reid balloon likely not needed -Pitocin per protocol once miso dosing complete -AROM as indicated -Anticipate PIH: hx of eclamptic seizure -BPs in mild range -PIH labs pending -No symptoms at present -Low threshold to start magnesium -Avoid methergine in event of PPH PAIN: Fentanyl until 7 cm dilated and not to exceed 200 mcg total -Epidural as desired Anticipate In-patient care
[2020-07-22 20:12] LABS: CREATININE 0.5 mg/dL (0.4-1.0)
[2020-07-22] MEDS ORDERED: fentaNYL 100 MCG/2 ML VIAL IVP PRN (20:12)
[2020-07-22] MEDS: miSOPROStoL 100 MCG TABLET BC SCH (20:30)
[2020-07-22 21:03] LABS: CREATININE,URINE 209.9 mg/dL; PROTEIN/CREATININE RATIO,URINE 0.1 (<=0.2)
[2020-07-23] MEDS: miSOPROStoL 100 MCG TABLET BC SCH (00:31)
[2020-07-23] MEDS ORDERED: SODIUM CHLORIDE FLUSH 0.9% 10 ML SYRINGE IVP SCH (01:00)
[2020-07-23] MEDS: LACTATED RINGERS 1,000 ML IV SCH ×4 (04:35→18:26)
[2020-07-23 09:15] LABS: HGB - HEMOGLOBIN 12.6 g/dL (12.0-16.0); MEAN CORPUSCULAR HGB CONC 33.3 g/dL (32.0-36.0); MEAN PLATELET VOLUME 12.2 fL (7.9-10.8); RED BLOOD COUNT 4.5 10^6/uL (4.20-5.40); RED CELL DISTRIBUTION WIDTH 12.7 % (12.0-15.0); WHITE BLOOD COUNT 11.8 x10^3/uL (4.8-10.8)
[2020-07-23 09:25] LABS: CREATININE,URINE 83.5 mg/dL; PROTEIN/CREATININE RATIO,URINE 0.1 (<=0.2)
--- NOTE | 2020-07-23 09:41 | PROVIDER PROGRESS NOTE ---
Labor Progress Note - Uterine Monitoring Contraction Frequency (min/apart): 2-3 Contraction Intensity: positive: Moderate to strong Uterine Resting Tone: positive: Soft - Monitoring Heart Rate Baseline: 130 Heart Rate Variability: positive: Moderate (6-25 bmp) Accelerations: positive: Present, 15x15 Decelerations: positive: Variable Strip Review: positive: Category I - Vaginal Exam Dilation (in cm): 6 Effacement (%): 80% Station: 0 - Labor Progress Note Labor Progress Note/Additional Text: BP 140/88. Pt tolerating contractions. Excellent progress. If Bp increases will start Magnesium.
[2020-07-23 09:54] LABS: ALBUMIN 3.1 g/dL (3.2-5.5); ALBUMIN/GLOBULIN RATIO 0.9 (1.0-2.2); BILIRUBIN,TOTAL 0.7 mg/dL (0.2-1.0); CALCIUM 8.4 mg/dL (8.5-10.3); CREATININE 0.6 mg/dL (0.4-1.0); TOTAL PROTEIN 6.6 g/dL (6.7-8.2)
--- NOTE | 2020-07-23 10:08 | PROVIDER PROGRESS NOTE ---
Labor Progress Note - Uterine Monitoring Uterine Monitoring Mode: positive: External toco Contraction Frequency (min/apart): 3 Contraction Intensity: positive: Strong Uterine Resting Tone: positive: Soft - Monitoring Monitor Mode: positive: External ultrasound Heart Rate Baseline: 135 Heart Rate Variability: positive: Moderate (6-25 bmp) Accelerations: positive: Present, 15x15 Decelerations: positive: Early Strip Review: positive: Category I - Vaginal Exam Dilation (in cm): 8 Effacement (%): 90% Station: 1 Cervical Position: Anterior - Labor Progress Note Labor Progress Note/Additional Text: Pt requests an epidural. Will try
[2020-07-23] MEDS ORDERED: diphenhydrAMINE INJ 50 MG/ML VIAL IVP PRN (10:12)
[2020-07-23] MEDS ORDERED: NALBUPHINE 10 MG/ML AMP IVP PRN (10:12)
[2020-07-23] MEDS ORDERED: METOCLOPRAMIDE 10 MG/2 ML VIAL IVP PRN (10:12)
[2020-07-23] MEDS ORDERED: ePHEDrine 50 MG/ML VIAL IVP PRN (10:12)
[2020-07-23] MEDS ORDERED: NALOXONE 0.4 MG/ML VIAL IVP PRN (10:12)
[2020-07-23] MEDS ORDERED: ONDANSETRON 4 MG/2 ML VIAL IVP PRN (10:12)
[2020-07-23] MEDS ORDERED: ROPIVACAINE 0.2% 0 MG/0 ML BAG EP ONE (10:14)
--- NOTE | 2020-07-23 10:16 | ANESTHESIA ---
Pre-Anesthesia VS, & Labs - Diagnosis IUP term, PIH, hx eclampsia, IOL - Procedure labor epidural Vital Signs: Temp Pulse Resp BP Pulse Ox 36.7 C 88 17 146/89 H 07/22/20 18:18 07/22/20 18:18 07/22/20 18:18 07/22/20 18:18 Height 5 ft 6 in Weight (kg) 86.636 kg Body Mass Index 22.2 - Is Patient ?: Yes, Waiver signed Estimated Due Date:: 07/23/20 - Lab Results Current Lab Results: Laboratory Tests 07/23/20 09:35: Sodium 135, Potassium 3.5, Chloride 105, Carbon Dioxide 20 L, Anion Gap 10.0, BUN 11, Creatinine 0.6, Estimated GFR (MDRD) 125, Glucose 89, Calcium 8.4 L, Total Bilirubin 0.7, AST 20, ALT 13, Alkaline Phosphatase 107, Total Protein 6.6 L, Albumin 3.1 L, Globulin 3.5, Albumin/Globulin Ratio 0.9 L 07/23/20 08:55: WBC 11.8 H, RBC 4.50, Hgb 12.6, Hct 37.8, MCV 84.0, MCH 28.0, MCHC 33.3, RDW 12.7, Plt Count 145, MPV 12.2 H 07/22/20 18:15: Blood Type O NEGATIVE, Antibody Screen NEGATIVE 07/22/20 18:15: Creatinine 0.5, Estimated GFR (MDRD) 154, AST 20, ALT 14 07/22/20 18:15: WBC 11.3 H, RBC 4.35, Hgb 12.3, Hct 36.5 L, MCV 83.9, MCH 28.3, MCHC 33.7, RDW 12.8, Plt Count 151, MPV 12.9 H, Neut # (Auto) 8.9 H, Lymph # (Auto) 1.6, [place] # (Auto) 0.7, Eos # (Auto) 0.0, Baso # (Auto) 0.0, Absolute Nucleated RBC 0.00, Nucleated RBC % 0.0 Fish Bones: 07/23/20 08:55 07/23/20 09:35 Home Medications and Allergies Active Medications Carboprost Tromethamine (Hemabate) 250 mcg IM Q15M PRN PRN Reason: Step 4: Hemorrhage protocol Stop: 07/27/20 19:44 Diphenhydramine HCl (Benadryl Inj) 12.5 - 25 mg IVP Q6HR PRN PRN Reason: ITCHING Ephedrine Sulfate () 5 mg IVP Q5M PRN PRN Reason: For SBP<100;give until SBP>100 Fentanyl (Fentanyl) 50 mcg IVP Q1H PRN PRN Reason: PAIN Lactated Ringer's (Lr) 1,000 mls @ 150 mls/hr IV .Q6H40M [facility] Last Admin: 07/23/20 04:35 Dose: 150 mls/hr Documented by: Tranexamic Acid 1,000 mg/ (Sodium Chloride) 110 mls @ 660 mls/hr IV .ONCE PRN PRN Reason: EBL >1200mL and within 3hr Stop: 07/27/20 19:44 Oxytocin/Sodium Chloride (Pitocin/Sodium Chloride) 500 mls @ 1 mls/hr IV TITR ALYSSA; Protocol Last Admin: 07/23/20 04:36 Dose: 1 milliunit/min, 1 mls/hr Documented by: Oxytocin/Sodium Chloride (Pitocin/Sodium Chloride) 500 mls @ 999 mls/hr IV PRN PRN; Protocol PRN Reason: POST- HEMORR PREVENTION Lactated Ringer's (Lr) 500 mls @ 999 mls/hr IV ONCE ONE Stop: 07/23/20 10:42 Labetalol HCl (Trandate Inj) 20 mg IVP ONCE PRN PRN Reason: hypertensive emergency Stop: 07/24/20 19:42 Lidocaine HCl (Xylocaine-Mpf 1% Vial) 30 ml ID .ONCE PRN PRN Reason: PERINEAL REPAIR Stop: 07/27/20 19:44 Methylergonovine Maleate (Methergine Inj) 0.2 mg IM .ONCE PRN PRN Reason: Step 2: Hemorrhage protocol Stop: 07/27/20 19:44 Metoclopramide HCl (Reglan) 5 mg PO Q6H PRN PRN Reason: Nausea / Vomiting Metoclopramide HCl (Reglan Inj) 5 mg IVP Q6H PRN PRN Reason: Nausea / Vomiting Metoclopramide HCl (Reglan Inj) 10 mg IVP Q6HR PRN PRN Reason: Nausea / Vomiting Misoprostol (Cytotec) 800 mcg BC ONCE PRN PRN Reason: Post- Hemorrhage Stop: 07/23/20 19:42 Nalbuphine HCl (Nubain) 2.5 - 5 mg IVP Q4H PRN PRN Reason: ITCHING Naloxone HCl (Narcan) 0.1 mg IVP Q2M PRN PRN Reason: RR<8 Ondansetron HCl (Zofran Inj) 4 mg IVP Q4HR PRN PRN Reason: Nausea / Vomiting Ondansetron HCl (Zofran Odt) 4 mg TL Q4HR PRN PRN Reason: Nausea / Vomiting Ondansetron HCl (Zofran Inj) 4 mg IVP Q6HR PRN PRN Reason: Nausea / Vomiting Oxytocin (Pitocin) 10 unit IM .ONCE PRN PRN Reason: Step one: If no IV access Stop: 07/27/20 19:44 Sodium Chloride (Normal Saline Flush 0.9%) 10 ml IVP PRN PRN PRN Reason: NEEDED PER PROVIDER ORDERS Sodium Chloride (Normal Saline Flush 0.9%) 10 ml IVP 0100,0900,1700 ALYSSA Allergies/Adverse Reactions: Allergies Allergy/AdvReac Type Severity Reaction Status Date / Time No Known Drug Allergies Allergy Verified 04/04/18 05:44 Anes History & Medical History - Medical History Cardiovascular: reports: None Pulmonary: reports: None Gastrointestinal: reports: None Urinary: reports: None Neuro: reports: Seizure disorder Musculoskeletal: reports: Other Endocrine/Autoimmune: reports: None Blood Disorders: reports: None Skin: reports: None Smoking Status: Never smoker - Obstetrical History : 3 Parity: 1 Events: positive: induced HTN Complications: positive: induced HTN Plan Anesthesia Type: Epidural Consent for Procedure(s) Verified and Reviewed: Yes Code Status: Attempt Resuscitation ASA classification: 2-Mild systemic disease Is this case an emergency?: No
[2020-07-23] MEDS ORDERED: miSOPROStoL 200 MCG TABLET BC PRN (10:27)
--- NOTE | 2020-07-23 10:55 | DELIVERY NOTE ---
Delivery Note - Labor Labor: positive: Induced by ARM, Induced by oxytocin - Infant Delivery Method Infant Delivery Method: positive: Spontaneous vaginal delivery - Cervical Ripening Method Cervical Ripening Method: positive: Misoprostil - Presentation Presentation: positive: Vertex, BERNARD - left occiput anterior - Nuchal Cord Nuchal Cord: positive: Present, Reduced - Anesthetic Anesthetic Type: - Amniotic Fluid Description Amniotic Fluid Description: positive: Clear - Episiotomy Type Episiotomy Type: positive: None - Laceration Laceration: positive: None - Delivery Outcome Delivery Outcome: positive: Livebirth - Girdler : positive: Placed in direct skin contact with mother, Bulb syringe, Stimulated Girdler sex: positive: Female : APGARS 9/9 - Cord Cord: positive: 3 vessels - Placenta Placenta: positive: Intact - Estimated Blood Loss Estimated Blood Loss (in cc): 300 - Post Delivery Events Post Delivery Events: positive: No post delivery events - Delivery Comments (Free Text/Narrative) Delivery Comments (Free Text/Narrative): Patient presented last night for cervical ripening. She received 2 doses of Misoprostol. Following this Pitocin was started at 430 this morning. Upon examination at 9:00 her cervix was 6 cm 80% effaced and 0 station. Membranes were artificially ruptured and the amniotic fluid was noted to be clear. Pitocin was continued and she reached complete at 1011. She had a very short second stage and at 1018 delivered a live female over an intact perineum. There was a nuchal cord x1 which was reduced after delivering the head the was handed to the nurse and placed on the maternal chest. Bulb suction was used. The cord was allowed to stop pulsating and then was clamped and divided by the father. Placenta followed at 1023 was inspected and noted to be intact. The there was some difficulty with some mild atony. She received Pitocin as well as 600 microgm of Misoprotol per rectum. There was an excellent result and her uterus stopped bleeding and contracted down firmly. Her events have been unremarkable at this time. She had requested an epidural but this was not able to be placed secondary to the rapidity of her second stage.
[2020-07-23] MEDS ORDERED: LACTATED RINGERS 1,000 ML IV SCH (11:00)
[2020-07-23] MEDS ORDERED: oxyCODONE 5 MG TABLET PO PRN (11:00)
[2020-07-23] MEDS ORDERED: diphenhydrAMINE 25 MG CAPSULE PO PRN (11:00)
[2020-07-23] MEDS ORDERED: LACTATED RINGERS 500 ML IV ONE (11:00)
[2020-07-23] MEDS: ACETAMINOPHEN 500 MG TABLET PO SCH ×2 (11:54→19:54)
[2020-07-23] MEDS ORDERED: SIMETHICONE CHEW 80 MG TABLET PO SCH (14:00)
[2020-07-23] MEDS: SODIUM CHLORIDE FLUSH 0.9% 10 ML SYRINGE IVP SCH ×3 (14:40→18:26)
[2020-07-23] MEDS: DOCUSATE SODIUM 100 MG CAPSULE PO SCH (21:29)
[2020-07-24] MEDS: ACETAMINOPHEN 500 MG TABLET PO SCH ×2 (04:05→11:51)
[2020-07-24 06:50] LABS: BASOPHILS % (AUTO) 0.4 %; EOSINOPHILS # (AUTO) 0.1 10^3/uL (0.0-0.7); EOSINOPHILS % (AUTO) 1.1 %; HGB - HEMOGLOBIN 11.7 g/dL (12.0-16.0); LYMPHOCYTES # (AUTO) 1.5 10^3/uL (1.5-3.5); LYMPHOCYTES % (AUTO) 15.1 %; MEAN CORPUSCULAR HEMOGLOBIN 28.2 pg (27.0-31.0); MEAN CORPUSCULAR HGB CONC 33.3 g/dL (32.0-36.0); MEAN CORPUSCULAR VOLUME 84.6 fL (81.0-99.0); MEAN PLATELET VOLUME 12.3 fL (7.9-10.8); MONOCYTES # (AUTO) 0.8 10^3/uL (0.0-1.0); MONOCYTES % (AUTO) 7.8 %; NEUTROPHILS # (AUTO) 7.5 10^3/uL (1.5-6.6); NEUTROPHILS % (AUTO) 74.5 %; PLT - PLATELET COUNT 134 10^3/uL (130-450); RED BLOOD COUNT 4.15 10^6/uL (4.20-5.40); RED CELL DISTRIBUTION WIDTH 12.9 % (12.0-15.0); WHITE BLOOD COUNT 10.1 x10^3/uL (4.8-10.8)
[2020-07-24 07:02] LABS: ALBUMIN 2.9 g/dL (3.2-5.5); BILIRUBIN,TOTAL 0.5 mg/dL (0.2-1.0); CALCIUM 8.3 mg/dL (8.5-10.3); CREATININE 0.6 mg/dL (0.4-1.0); TOTAL PROTEIN 5.8 g/dL (6.7-8.2); URIC ACID 4.6 mg/dL (2.6-7.2)
--- NOTE | 2020-07-24 10:41 | PROVIDER PROGRESS NOTE ---
Subjective - Prog Note Date Prog Note Date: 07/24/20 Prog Note Time: 10:37 - Subjective Pt reports feeling: Improved (Pt is feeling well. breast feeding. Pain 0.5 upto 2.5 with breast feeding. baby Bili up. will need lights. C/O hemorrhoids.) Objective - Vital Signs/Intake & Output Reviewed Vital Signs: Yes Vital Signs: Vital Signs x48h Temp Pulse Pulse Resp BP Pulse Ox 07/24/20 08:27 36.5 C 62 17 124/74 100 07/24/20 03:50 36.8 C 85 118/72 99 Intake & Output: Intake & Output 07/21/20 07/22/20 07/23/20 07/24/20 23:59 23:59 23:59 23:59 Intake Total 1505.00 Output Total 1475 Balance 30.00 - Objective General Appearance: positive: No acute distress, Alert Respiratory: positive: Chest non-tender, No respiratory distress, Breath sounds nml Cardiovascular: positive: Regular rate & rhythm, No murmur, No gallop Abdomen: positive: Non-tender, Mass (U-1 nontender) Extremities: negative: Non-tender, Calf tenderness, Dante's sign/cords Reflexes: Knee (R): 1+ (no clonus), Knee (L): 1+ (no clonus) - Lab Results Fish Bones: 07/24/20 06:22 07/24/20 06:22 Other Labs: Lab Results x24hrs 07/24/20 07/24/20 07/24/20 Range/Units 06:22 06:22 06:22 WBC 10.1 (4.8-10.8) x10^3/uL RBC 4.15 L (4.20-5.40) 10^6/uL Hgb 11.7 L (12.0-16.0) g/dL Hct 35.1 L (37.0-47.0) % MCV 84.6 (81.0-99.0) fL MCH 28.2 (27.0-31.0) pg MCHC 33.3 (32.0-36.0) g/dL RDW 12.9 (12.0-15.0) % Plt Count 134 (130-450) 10^3/uL MPV 12.3 H (7.9-10.8) fL Neut # (Auto) 7.5 H (1.5-6.6) 10^3/uL Lymph # (Auto) 1.5 (1.5-3.5) 10^3/uL Ness # (Auto) 0.8 (0.0-1.0) 10^3/uL Eos # (Auto) 0.1 (0.0-0.7) 10^3/uL Baso # (Auto) 0.0 (0.0-0.1) 10^3/uL Absolute Nucleated RBC 0.00 x10^3/uL Nucleated RBC % 0.0 /100WBC Sodium 136 (135-145) mmol/L Potassium 3.7 (3.5-5.0) mmol/L Chloride 105 (101-111) mmol/L Carbon Dioxide 24 (21-32) mmol/L Anion Gap 7.0 (6-13) BUN 9 (6-20) mg/dL Creatinine 0.6 (0.4-1.0) mg/dL Estimated GFR (MDRD) 125 (>89) Glucose 85 (70-100) mg/dL Uric Acid 4.6 (2.6-7.2) mg/dL Calcium 8.3 L (8.5-10.3) mg/dL Total Bilirubin 0.5 (0.2-1.0) mg/dL AST 24 (10-42) IU/L ALT 13 (10-60) IU/L Alkaline Phosphatase 82 (42-121) IU/L Total Protein 5.8 L (6.7-8.2) g/dL Albumin 2.9 L (3.2-5.5) g/dL Globulin 2.9 (2.1-4.2) g/dL Albumin/Globulin Ratio 1.0 (1.0-2.2) Blood Type Recheck O NEGATIVE Assessment/Plan - Problem List (1) (spontaneous vaginal delivery) Impression: recovering well excellent progress (2) 39 weeks gestation of Impression: Delivered
[2020-07-24] MEDS: DOCUSATE SODIUM 100 MG CAPSULE PO SCH ×2 (11:50→21:30)
[2020-07-24] MEDS ORDERED: HYDROCORTISONE 1% CREAM 28 GM TUBE TOP SCH (12:00)
[2020-07-24] MEDS: SODIUM CHLORIDE FLUSH 0.9% 10 ML SYRINGE IVP SCH (18:40)
[2020-07-25] MEDS: ACETAMINOPHEN 500 MG TABLET PO SCH (05:02)
--- NOTE | 2020-07-25 11:57 | PROVIDER PROGRESS NOTE ---
Subjective - Subjective Pt reports feeling: Improved (Pain 0/10. Pt developed shakey feeling following breast feeding. resolved with food. Jovanni aura.) Objective - Vital Signs/Intake & Output Reviewed Vital Signs: Yes Vital Signs: Vital Signs x48h Temp Pulse Resp BP Pulse Ox 07/25/20 10:45 129/77 07/25/20 08:00 36.8 C 93 18 119/75 100 07/25/20 05:05 36.6 C 91 16 123/78 100 Intake & Output: Intake & Output 07/22/20 07/23/20 07/24/20 07/25/20 23:59 23:59 23:59 23:59 Intake Total 1505.00 650 Output Total 1475 Balance 30.00 650 - Objective General Appearance: positive: No acute distress, Alert Respiratory: positive: Chest non-tender, No respiratory distress, Breath sounds nml Cardiovascular: positive: Regular rate & rhythm, No murmur, No gallop Abdomen: positive: Non-tender, Mass (U-3) Extremities: negative: Calf tenderness, Dante's sign/cords Reflexes: Knee (R): 1+ (No clonus), Knee (L): 1+ (No clonus) - Lab Results Fish Bones: 07/24/20 06:22 07/24/20 06:22 Assessment/Plan - Problem List (1) (spontaneous vaginal delivery) Impression: Pt is recovering well reviewed breast feeding. Pt needs only tylenol for pain. RTC one week.
--- NOTE | 2020-07-25 12:00 | Discharge Plan ---
Discharge Plan Problem Reviewed?: Yes Disposition: Home, Self Care Condition: Good Diet: Regular Activity Restrictions: Pelvic rest 6 weeks Shower Restrictions: No Driving Restrictions: No No Smoking: If you smoke, Please STOP! Call for help.
[2020-07-25 12:46] VITALS: BP 130/75
--- NOTE | 2020-07-25 15:08 | Labor Flowsheet ---
Labor Flowsheet Datetime Report Generated by CPN: 07/25/2020 15:07 Datetime: 07/24/2020 08:13 VITAL SIGNS NBP Sys/Lety/Mean (mmHg): 124 : 74 : 87 Pulse: 60 Datetime: 07/23/2020 19:35 SpO2 (%): 98 Datetime: 07/23/2020 12:27 Hygiene: Felicia Care; Underpad Changed; Peripad Changed; Gown Changed; Linens Changed I/O Interventions: Up to BR Patient Care Comments: 400cc Datetime: 07/23/2020 10:42 MEDICATIONS Pitocin (milliunits): Decreased to @ 100ml/hr Datetime: 07/23/2020 10:23 Medication Comments: 600mg Miso given Rectal by MD Datetime: 07/23/2020 10:19 Stage of : Recovery Datetime: 07/23/2020 10:17 Stage 2 Comments: head born, nuchal x1 noted Datetime: 07/23/2020 10:15 UTERINE ACTIVITY Monitor Mode: External Frequency (min): 1-3 Quality: Strong Duration (sec): 40-70 Pattern: Normal: <= 5 Contractions in 10 Minutes Resting Tone (Palpate): Relaxed ASSESSMENT A Monitor Mode: Telemetry FHR Baseline Rate : 130 Variability: Moderate 6-25 bpm Comments: interrupted strip possible maternal HR pt pushing with ctx Oxygen Method: Room Air Datetime: 07/23/2020 10:13 STAGE 2 Pushing: Coached on Pushing Pushing Progress: with Pushing COMMUNICATION Communication: Provider at Bedside Provider Notified (Name): Dr Giem Datetime: 07/23/2020 10:11 Exam by: Aster B. RN Vaginal Exam Comments: complete Datetime: 07/23/2020 10:05 Patient Position/Activity: Right Tilt Datetime: 07/23/2020 10:02 VAGINAL EXAM Dilatation (cm): 8.0 Effacement (%): 90 Station: 1 Datetime: 07/23/2020 10:01 Monitor Interventions for UA: Villanueva Adjusted Datetime: 07/23/2020 10:00 Decelerations: Variable Category: Category II Datetime: 07/23/2020 09:47 Communication Comments: Dr Giem Datetime: 07/23/2020 09:46 LaborFlag: Labor Datetime: 07/23/2020 09:45 Accelerations: 15X15 Datetime: 07/23/2020 09:44 Respirations: 17 Temperature (C): 36.7 Datetime: 07/23/2020 09:09 Membrane Status: Ruptured Membranes Rupture Method: Artificial Amniotic Fluid Color: Clear Amniotic Fluid Amount: Small Amniotic Fluid Odor: Normal Vaginal Bleeding: None Datetime: 07/23/2020 09:00 Notification Reason: Status Update Datetime: 07/23/2020 08:12 PAIN Pain Scale: 4 Datetime: 07/23/2020 07:35 Pain Location: Abdomen Pain Assessment Comments: 4/10 with ctx Datetime: 07/23/2020 07:30 FHR Baseline Changes: No Baseline Change Datetime: 07/23/2020 07:00 Pain Presence: Intermittent Pain Type: Cramping Datetime: 07/23/2020 04:43 PATIENT CARE IV/Blood Work: IV Bag Number @ 1 started at 125/hr Datetime: 07/23/2020 04:30 MATERNAL ASSESSMENT Level of Consciousness: Alert DTR's/Clonus: DTRs 2+ Headache: Denies Breath Sounds, Left: Clear and Equal Breath Sounds, Right: Clear and Equal Nausea/Vomiting: Denies RUQ Epigastric Pain: Denies Datetime: 07/23/2020 00:31 Cervical Ripening Agents: Cytotec @ 50 mg PO Datetime: 07/22/2020 22:30 Contraction Comments: pt reports feeling mild cramping only
--- NOTE | 2020-08-04 13:18 | DISCHARGE SUMMARY ---
Physician: Bam Iyer MD DATE OF ADMISSION: 07/22/2020 DATE OF DISCHARGE: 07/25/2020 ADMITTING DIAGNOSES: 1. A 24-year-old G3, P1 at 38 weeks 6 days. 2. History of any eclamptic seizure. 3. Blood pressure elevations in the clinic. DISCHARGE DIAGNOSES: 1. A 24-year-old G3, P1 at 38 weeks 6 days. 2. History of any eclamptic seizure. 3. Blood pressure elevations in the clinic. 4. Plus 8 minute second stage. Nuchal cord x1. Spontaneous vaginal delivery. PROCEDURES: 1. Misoprostol cervical ripening. 2. Pitocin induction. 3. Artificial rupture of membranes. 4. Spontaneous vaginal delivery. PRESENTING HISTORY: Patient is a 24-year-old, G3, P2, at 38 weeks and 6 days. She has a history of having an eclamptic seizure with her last delivery. She has had this roughly 3 days after delivery. She initially had her OB care at [facility] and transferred at 34 weeks EG. She was placed on 81 mg of a spirin on a daily basis. She was noted to be O negative. Her SDI screen was negative. Her 50 gram G lucola was 125. She received Tdap as well as RhoGAM. HOSPITAL COURSE: Patient was admitted, received 2 doses of misoprostol. She started on Pitocin on 8 :30 in the morning. Upon examination at 9:00. She was 6 cm, 80%, 0 station. Membranes were artifici ally ruptured. Clear amniotic fluid was encountered. She reached complete at 1011. and following a very short second stage of 8 minutes, she delivered a live female over an intact perineum at 1 018. There was a nuchal cord x1, which was reduced after delivery of the head. The was yony d to the patient. The cord was cut after it stopped pulsation. She was noted to be intact in the pe rineum. She had some mild atony, which was treated aggressively with misoprostol 600 mcg per rectum. She had good contractions. Her course was unremarkable. She had minimal to no pain. H er blood pressures were in the 120s/70s. She evidenced no hypertension. She was kept for 48 hours b ecause of the history of her eclamptic seizure with her last delivery. She was discharged to home on 07/25/2020. DISCHARGE MEDICATIONS: Tylenol only for pain. We discussed contraception, as well as and its advantages. TD: 08/04/2020 10:53
== END 2020-07-25 13:45 | disposition home or self-care (01) | DRG 807 ==
LOC: WFO 17:26 → FBP 17:29 → WFO 19:42 → FBP 19:43
PROVIDERS: ADMIT Obstetrics & Gynecology; ATTEND Obstetrics & Gynecology
PROC: 10E0XZZ Delivery of Products of Conception, External Approach (ICD-10-PCS; principal; 2020-07-23)
PROC: 3E033VJ Introduction of Other Hormone into Peripheral Vein, Percutaneous Approach (ICD-10-PCS; 2020-07-23)
PROC: 10907ZC Drainage of Amniotic Fluid, Therapeutic from Products of Conception, Via Natural or Artificial Opening (ICD-10-PCS; 2020-07-23)
DX: O26.893 Other specified pregnancy related conditions, third trimester (principal); Z37.0 Single live birth; R03.0 Elevated blood-pressure reading, without diagnosis of hypertension; O72.1 Other immediate postpartum hemorrhage; O62.3 Precipitate labor; O69.81X0 Labor and delivery complicated by cord around neck, without compression, not applicable or unspecified; Z3A.38 38 weeks gestation of pregnancy; Z79.82 Long term (current) use of aspirin; Z87.59 Personal history of other complications of pregnancy, childbirth and the puerperium
CPT/HCPCS: 36415; 80053; 82565; 82570; 84156; 84450; 84460; 84550; 85025; 85027; 86850; 86900; 86901; 88307; A9270; J7120

== ENCOUNTER 2022-10-27 08:00 | Outpatient (CLI) | payer OTHER | END 2022-10-27 23:59 | disposition home or self-care (01) | LOC: LAB.N 08:00 | PROVIDERS: ATTEND Registered Nurse | DX: R82.79 Other abnormal findings on microbiological examination of urine (principal); R10.9 Unspecified abdominal pain | CPT/HCPCS: 87086; 87181 ==